=== PATIENT | female | born 1990 | race Caucasian/White ===

== ENCOUNTER 2023-01-10 10:04 | Emergency (ER) | payer OTHER ==
[2023-01-10 10:23] LABS: BASOPHILS % (AUTO) 0.6 %; EOSINOPHILS # (AUTO) 0.2 10^3/uL (0.0-0.7); EOSINOPHILS % (AUTO) 2.3 %; HCT - HEMATOCRIT 39.1 % (37.0-47.0); HGB - HEMOGLOBIN 13.6 g/dL (12.0-16.0); LYMPHOCYTES # (AUTO) 2.3 10^3/uL (1.5-3.5); LYMPHOCYTES % (AUTO) 33.1 %; MEAN CORPUSCULAR HEMOGLOBIN 30.8 pg (27.0-31.0); MEAN CORPUSCULAR HGB CONC 34.8 g/dL (32.0-36.0); MEAN CORPUSCULAR VOLUME 88.5 fL (81.0-99.0); MEAN PLATELET VOLUME 9.1 fL (7.9-10.8); MONOCYTES # (AUTO) 0.4 10^3/uL (0.0-1.0); MONOCYTES % (AUTO) 5.5 %; NEUTROPHILS # (AUTO) 4.1 10^3/uL (1.5-6.6); NEUTROPHILS % (AUTO) 58.4 %; PLT - PLATELET COUNT 263 10^3/uL (130-450); RED BLOOD COUNT 4.42 10^6/uL (4.20-5.40); RED CELL DISTRIBUTION WIDTH 11.5 % (12.0-15.0); WHITE BLOOD COUNT 7.1 x10^3/uL (4.8-10.8)
[2023-01-10 10:35] LABS: BILIRUBIN,TOTAL 0.6 mg/dL (0.2-1.0); CALCIUM 9.4 mg/dL (8.5-10.3); CREATININE 0.7 mg/dL (0.4-1.0); POTASSIUM 3.6 mmol/L (3.5-5.0)
[2023-01-10 10:36] LABS: ALBUMIN 4.1 g/dL (3.2-5.5); TOTAL PROTEIN 8.1 g/dL (6.7-8.2)
[2023-01-10] MEDS ORDERED: iohexoL-300 100 ML VIAL ONE (10:47)
--- NOTE | 2023-01-10 11:02 | ED Physician Documentation ---
PD HPI ABD PAIN - Stated complaint Stated Complaint: ABD PX - Chief complaint Chief Complaint: Abd Pain - History obtained from History obtained from: Patient - Additional information Additional information: The patient sent to the emergency department from Dr. Ferguson's office for chief complaint of abdominal pain in the right upper quadrant that has been going on for the last several days. The patient apparently was seen at [facility] for right upper quadrant pain 2 weeks ago and after extensive work-up including labs, urinalysis, ultrasound of the right upper quadrant, and CT abdomen pelvis, it was determined The patient had tip appendicitis. The on-call surgeon Dr. Umanzor was consulted and felt that the patient mainly needed antibiotics. She was discharged on Cipro and Flagyl, and states she took the whole course of both. However, she has continued to have symptoms and actually, the symptoms seem worse. The patient then ended up being somehow referred to Dr. Ferguson's office for evaluation after the symptoms failed to resolve with antibiotics. She was seen there this morning, but is Dr. Ferguson felt that she would need repeat imaging and labs, she was sent over here. The pain is focused in the patient's right upper quadrant. She did have some nausea and vomiting initially but states she has not had any vomiting since. No fevers or chills. She feels as though the right side is significantly more swollen than the left. The patient has no chronic underlying abdominal conditions. PD PAST MEDICAL HISTORY - Past Medical History Endocrine/Autoimmune: Other GI: Other Psych: Depression Other Past Medical History: appendicitis, thyroid nodule - Past Surgical History Past Surgical History: No - Present Medications Home Medications: Ambulatory Orders Medication Instructions Recorded Confirmed Cetirizine [ZyrTEC] 10 mg PO DAILY 01/10/23 01/10/23 Cyanocobalamin (Vitamin B-12) 1,000 mcg PO DAILY 01/10/23 01/10/23 [Vitamin B-12] Ferrous Sulfate [Feosol] 325 mg PO DAILY 01/10/23 01/10/23 Fluticasone [Flonase] 1 sprays ALEJANDRO DAILY 01/10/23 01/10/23 QUEtiapine [SEROquel] 100 mg PO QPM 01/10/23 01/10/23 Venlafaxine ER [Effexor ER] 150 mg PO DAILY 01/10/23 01/10/23 metFORMIN [Glucophage] 750 mg PO DAILY 01/10/23 01/10/23 traZODone [Desyrel] 50 mg PO HS 01/10/23 01/10/23 - Allergies Allergies/Adverse Reactions: Allergies Allergy/AdvReac Type Severity Reaction Status Date / Time Sulfa (Sulfonamide Allergy Hives Verified 01/10/23 10:15 Antibiotics) - Social History Does the pt smoke?: No Smoking Status: Never smoker Does the pt drink ETOH?: Yes Does the pt have substance abuse?: No - POLST Patient has POLST: No PD ED PE NORMAL - Vitals Vital signs reviewed: Yes - General General: Alert and oriented X 3, No acute distress, Well developed/nourished - HEENT HEENT: Atraumatic, PERRL, EOMI, Moist mucous membranes - Neck Neck: Supple, no meningeal sign - Cardiac Cardiac: RRR, No murmur, Strong equal pulses - Respiratory Respiratory: No respiratory distress, Clear bilaterally - Abdomen Abdomen: Soft, Non distended (No distention on the right side compared to the left that is appreciable on exam.), Other (Moderate right upper quadrant tenderness extending toward epigastrium, no rebound or guarding. Mild tenderness of the superior portion of the right Lower quadrant.) - Derm Derm: Normal color, Warm and dry, No rash - Extremities Extremities: No deformity - Neuro Neuro: Alert and oriented X 3 - Psych Psych: Normal mood, Normal affect Results - Vitals Vitals: Vital Signs - 24 hr 01/10/23 10:11 Temperature 36.6 C Heart Rate 79 Respiratory 20 Rate Blood Pressure 143/107 H O2 Saturation 100 Oxygen O2 Source Room air - Labs Labs: Laboratory Tests 01/10/23 01/10/23 10:18 10:18 WBC 7.1 RBC 4.42 Hgb 13.6 Hct 39.1 MCV 88.5 MCH 30.8 MCHC 34.8 RDW 11.5 L Plt Count 263 MPV 9.1 Neut # (Auto) 4.1 Lymph # (Auto) 2.3 Coffey # (Auto) 0.4 Eos # (Auto) 0.2 Baso # (Auto) 0.0 Absolute Nucleated RBC 0.00 Nucleated RBC % 0.0 Sodium 134 L Potassium 3.6 Chloride 100 L Carbon Dioxide 25 Anion Gap 9.0 BUN 8 Creatinine 0.7 Estimated GFR (MDRD) 98 Glucose 175 H Calcium 9.4 Total Bilirubin 0.6 AST 31 ALT 56 Alkaline Phosphatase 73 Total Protein 8.1 Albumin 4.1 Globulin 4.0 Albumin/Globulin Ratio 1.0 Lipase 29 - Rads (name of study) CT abd/pelvis Relevant Findings:: Final report received, See rad report (Negative other than bilateral ovarian cysts) PD Medical Decision Making - ED course Complexity details: reviewed old records, reviewed results, re-evaluated patient, considered differential, d/w patient ED course: I spoke with Dr. Avendaño prior to the patient presenting to the emergency department and she had requested that the work-up be repeated to determine whether the patient has appendicitis or not. The patient was worked up with CBC and ER abdominal panel, as well as a CT scan of the abdomen and pelvis here in. I did also review her records from [facility] and found that she had had a normal white count at that time. The patient's laboratory studies were unremarkable on my review, and her CT scan of the abdomen pelvis was read By the radiologist as showing no appendicitis or other acute process. The patient was found to have complex adnexal cysts bilaterally with partial collapse of the right side, but this is unlikely to be causing the patient's symptoms, given the distance between the patient's pain and the ovaries. Unfortunately, I did not have an answer as to the cause of the patient's pain, though no emergent condition has been identified. The patient was extremely disgruntled over this and visibly angry. Her stated "so we're going to go away with no answers?" I did discuss with both of them that there are a number of things we have been able to rule out and that any question of appendicitis has been put to rest, which is good news. I discussed with them that there is more evaluation that can be done outside of the ED, and that I discussed the case with Dr. Ferguson after receiving the results back. Dr. Ferguson is willing to see the patient again urgently, but needs a new referral because [facility] [place] will not cover the visit under the referral heading "appendicitis" since we have found there to be no appendicitis at this time. I have attempted to get a hold of Nanda Nur, the patient's nurse practitioner, but unfortunately, the office is closed for 2 hours for lunch and I have not been able to do so in a timely manner. I have advised the patient that I will try to get a hold of Nanda after the lunch period is over so I can discuss the case with her and let her know of the progress of the patient's situation. Dr. Ferguson has requested that if possible, the HIDA scan be done before the patient's visit with her so that she can better advise the patient. I have discussed all of these things with the patient and her . The patient has adamantly declined any medication to help with her discomfort, either here or at home. I have advised the patient to call Ms. Nur office as soon as possible to get follow-up appointment set up. Departure - Departure Disposition: Home, Self Care Clinical Impression: Abdominal pain Qualifiers: Abdominal location: right upper quadrant Qualified Code(s): R10.11 - Right upper quadrant pain Condition: Stable Instructions: ED Abdominal Pain Female Non-Specific Abdominal Pain Comments: Your labs look great today, including white blood cell count, red blood cell levels, liver labs, and pancreatic enzymes. Your ultrasound showed no gallstones or blockage of your biliary system when you are [facility] and your CT scan today shows normal gallbladder, liver, and appendix, which would be of specific concern on your right side. You do have small ovarian cysts on each side but these are in your pelvis, quite a ways away from your focus of pain. As we discussed, there are other possible Causes of your symptoms which would need to be diagnosed by other modalities which are not available at our hospital, nor are indicated emergently. These would include a HIDA scan and endoscopy. I have discussed all of this with Dr. Ferguson, who is more than willing to see you again on an urgent basis but needs your primary provider to send another referral so that will cover your visit. She should keep this more general, with this descriptor of "right upper quadrant abdominal pain". She can also get the ball rolling on ordering a HIDA scan to further evaluate your pain. You have been offered medication in the emergency department, but have declined at this time. Please speak with your primary doctor about further management of symptoms at home.
[2023-01-10] MEDS ORDERED: iohexoL-300 100 ML VIAL IVP ONE (11:13)
--- NOTE | 2023-01-10 11:25 | CT Report ---
PROCEDURE: ABDOMEN/PELVIS W INDICATIONS: RLQ pain x 3 days, worsening CONTRAST: 100 ml Omnipaque 300 TECHNIQUE: After the administration of intravenous contrast, 5 mm thick sections acquired from the diaphragms to the symphysis. 5 mm thick coronal and sagittal reformats were acquired. For radiation dose reducti on, the following was used: automated exposure control, adjustment of mA and/or kV according to latonya ent size. COMPARISON: None FINDINGS: Image quality: Excellent. Lung bases and heart: Unremarkable. Liver: Moderate diffuse hepatic steatosis. Gallbladder and biliary tree: No radiopaque stones or wall thickening. No biliary dilation. Spleen: No splenomegaly. Pancreas: No pancreatic ductal dilation. Adrenals: No adrenal nodule. Kidneys and ureters: No hydronephrosis. No renal cystic lesion which requires follow up. No solid mas s. Bowel and peritoneum: No bowel distension. No pathologic free fluid. Thin-walled gas containing appen kaley. Lymph nodes: No central or retroperitoneal adenopathy. Vessels: No infrarenal aortic aneurysm. PELVIS Reproductive organs: Bilateral cystic adnexae with a partially collapsed right adnexal cyst. Bladder: No abnormal wall thickening, accounting for underdistension. Pelvic lymph nodes: No pelvic adenopathy by size criteria. Bones: No aggressive osseous abnormality. Other: No significant ventral or inguinal hernia. IMPRESSION: 1. Normal appendix. 2. No evidence acute abdominal process. 3. Bilateral cystic adnexae with a partially collapsed right adnexal cyst. Comment: Consider pelvic ultrasound if suspect ovarian pathology. Reviewed by: Michoacano Mccray MD on 01/10/2023 11:24 AM PDT Approved by: Michoacano Mccray MD on 01/10/2023 11:24 AM PDT Station ID: [id number]
[2023-01-10 12:23] VITALS: BP 156/117
== END 2023-01-10 12:22 | disposition home or self-care (01) ==
LOC: ED 10:04
DX: R10.11 Right upper quadrant pain (principal)
CPT/HCPCS: 36415; 74177; 80053; 83690; 85025; 99283; 99284; Q9967

== ENCOUNTER 2023-01-20 19:24 | Emergency (ER) | payer OTHER ==
[2023-01-20] MEDS ORDERED: SODIUM CHLORIDE 0.9% 1,000 ML IV STA (19:42)
[2023-01-20 19:45] VITALS: BP 130/90
[2023-01-20 19:50] LABS: BASOPHILS % (AUTO) 0.3 %; EOSINOPHILS # (AUTO) 0.1 10^3/uL (0.0-0.7); EOSINOPHILS % (AUTO) 2.1 %; HCT - HEMATOCRIT 38.5 % (37.0-47.0); HGB - HEMOGLOBIN 13.3 g/dL (12.0-16.0); LYMPHOCYTES # (AUTO) 2.4 10^3/uL (1.5-3.5); MEAN CORPUSCULAR HEMOGLOBIN 30.4 pg (27.0-31.0); MEAN CORPUSCULAR HGB CONC 34.5 g/dL (32.0-36.0); MEAN CORPUSCULAR VOLUME 88.1 fL (81.0-99.0); MEAN PLATELET VOLUME 9.3 fL (7.9-10.8); MONOCYTES # (AUTO) 0.4 10^3/uL (0.0-1.0); MONOCYTES % (AUTO) 7.3 %; NEUTROPHILS # (AUTO) 2.8 10^3/uL (1.5-6.6); NEUTROPHILS % (AUTO) 49.1 %; PLT - PLATELET COUNT 271 10^3/uL (130-450); RED BLOOD COUNT 4.37 10^6/uL (4.20-5.40); RED CELL DISTRIBUTION WIDTH 11.6 % (12.0-15.0); WHITE BLOOD COUNT 5.8 x10^3/uL (4.8-10.8)
--- NOTE | 2023-01-20 19:58 | ED Physician Documentation ---
History of Present Illness - Stated complaint Stated Complaint: RECTAL BLEED - Chief complaint Chief Complaint: Abd Pain - Additonal information Additional information: Patient is 32-year-old female presenting to the emergency department with chief complaint of bright red blood per rectum. She is G1, P0, reports being 8 weeks For dates. At this afternoon had an episode of bright red blood per rectum with "dark" stool. Denies similar episodes in the past. Denies vaginal bleeding.Denies any abdominal pain, fever, nausea, vomiting associated with this event. Denies any known history hemorrhoids. Was recently treated with antibiotics for tip appendicitis diagnosed at [facility] 2 weeks ago. Review of Systems Constitutional: denies: Fever Eyes: denies: Loss of vision Ears: denies: Loss of hearing Nose: denies: Rhinorrhea / runny nose Throat: denies: Dental pain / toothache Cardiac: denies: Chest pain / pressure Respiratory: denies: Dyspnea GI: reports: Bloody / black stool. denies: Abdominal Pain, Abdominal Swelling, Nausea, Vomiting, Constipation : denies: Dysuria, Vaginal bleeding Skin: denies: Rash PD PAST MEDICAL HISTORY - Past Medical History Endocrine/Autoimmune: Other GI: Other Psych: Depression - Past Surgical History Past Surgical History: No - Present Medications Home Medications: Ambulatory Orders Medication Instructions Recorded Confirmed Cetirizine [ZyrTEC] 10 mg PO DAILY 01/10/23 01/10/23 Cyanocobalamin (Vitamin B-12) 1,000 mcg PO DAILY 01/10/23 01/10/23 [Vitamin B-12] Ferrous Sulfate [Feosol] 325 mg PO DAILY 01/10/23 01/10/23 Fluticasone [Flonase] 1 sprays ALEJANDRO DAILY 01/10/23 01/10/23 QUEtiapine [SEROquel] 100 mg PO QPM 01/10/23 01/10/23 Venlafaxine ER [Effexor ER] 150 mg PO DAILY 01/10/23 01/10/23 metFORMIN [Glucophage] 750 mg PO DAILY 01/10/23 01/10/23 traZODone [Desyrel] 50 mg PO HS 01/10/23 01/10/23 - Allergies Allergies/Adverse Reactions: Allergies Allergy/AdvReac Type Severity Reaction Status Date / Time Sulfa (Sulfonamide Allergy Hives Verified 01/20/23 19:33 Antibiotics) - Social History Does the pt smoke?: No Smoking Status: Never smoker Does the pt drink ETOH?: Yes Does the pt have substance abuse?: No - POLST Patient has POLST: No PD ED PE NORMAL - Vitals Vital signs reviewed: Yes - General General: Alert and oriented X 3, No acute distress - HEENT HEENT: Atraumatic, PERRL - Neck Neck: Supple, no meningeal sign - Respiratory Respiratory: No respiratory distress - Abdomen Abdomen: Normal bowel sounds, Soft, Non distended, No organomegaly - Rectal Rectal: Other (No external hemorrhoids, possible internal hemorrhoid, no fissures, no notable red blood or melanotic stool in rectal vault.) Results - Vitals Vitals: Vital Signs - 24 hr 01/20/23 01/20/23 19:33 19:59 Temperature 36.5 C Heart Rate 90 Respiratory 16 Rate Blood Pressure 130/90 H O2 Saturation 99 98 Oxygen O2 Source Room air - EKG (time done) 2020 EKG releavant findings:: EKG personally interpreted by author of this note. Relevant findings are: Sinus rhythm with rate [address]pm[address] Normal axis. Normal CT, QRS, QTc intervals. No ST segment elevations or T wave inversions. - Labs Labs: Microbiology 01/20/23 18:11 Occult Blood - Final Stool Laboratory Tests 01/20/23 01/20/23 01/20/23 19:45 19:45 19:45 WBC 5.8 RBC 4.37 Hgb 13.3 Hct 38.5 MCV 88.1 MCH 30.4 MCHC 34.5 RDW 11.6 L Plt Count 271 MPV 9.3 Neut # (Auto) 2.8 Lymph # (Auto) 2.4 Story # (Auto) 0.4 Eos # (Auto) 0.1 Baso # (Auto) 0.0 Absolute Nucleated RBC 0.00 Nucleated RBC % 0.0 Sodium 136 Potassium 3.7 Chloride 105 Carbon Dioxide 25 Anion Gap 6.0 BUN 6 Creatinine 0.8 Estimated GFR (MDRD) 84 L Glucose 201 H Lactic Acid Calcium 9.2 HCG, Quant 1145.19 01/20/23 19:49 WBC RBC Hgb Hct MCV MCH MCHC RDW Plt Count MPV Neut # (Auto) Lymph # (Auto) Story # (Auto) Eos # (Auto) Baso # (Auto) Absolute Nucleated RBC Nucleated RBC % Sodium Potassium Chloride Carbon Dioxide Anion Gap BUN Creatinine Estimated GFR (MDRD) Glucose Lactic Acid 1.1 Calcium HCG, Quant PD Medical Decision Making - ED course Complexity details: reviewed old records, reviewed results, d/w patient ED course: Patient is 32-year-old female presenting to the emergency department with complaint of bright red blood per rectum. Presented reporting 1 episode of bright red blood per rectum with "dark" stools today. Does report a history of IBS. Also reported history of being 8 weeks by date with no confirmatory ultrasonography performed so far this . Reports that she is following up with [facility] in the coming days. She was recently seen at [facility] and subsequently evaluated at our hospital for tip appendicitis treated with antibiotics including Flagyl and ciprofloxacin. She had a CT scan of her abdomen and pelvis performed 01/10/2023 that was benign. On arrival to the emergency department she is afebrile, hemodynamically stable. She denies any abdominal pain and is certain that her bleeding is rectal and not vaginal. She denied any fever, chills, shortness of breath or other concerning symptoms. Abdominal exam in the emergency department was benign without any focal tenderness and normal bowel sounds. Rectal exam demonstrated a possible internal hemorrhoid on deep palpation but no red blood or melena in the rectal vault. Patient's lab work is all within normal limits at this time. She does have a quantitative beta-hCG of slightly over 1100 consistent with early trimester . There is nothing in her clinical presentation however to suggest acute colitis/C. difficile colitis or [employer] complication. At this time I will discharge for follow-up with primary care with plan for watchful waiting for recurrent or worsening symptoms and return precautions given prior to discharge. Departure - Departure Disposition: 01 Home, Self Care Clinical Impression: BRBPR (bright red blood per rectum) Instructions: ED Hematochezia Stable Comments: Thank you for allowing us to care for you today at [facility]. Today in the emergency department your evaluated for any possible life- threatening medical emergency. All of the testing performed in the emergency department today including your blood work was very reassuring. There is no sign of anemia or serious blood loss at this time and your quantitative beta-hCG hormone came back at slightly above 1100 consistent with early trimester . As we discussed there are many reasons why people can have an episode of bright red blood per rectum. On your exam you did have what felt like a possible small internal hemorrhoidHowever there was no active bleeding appreciated here in the emergency department. In situations like this it is safe to be discharged home however there are some things that you should be aware of that should prompt immediate return to the emergency department. It is possible that you may continue to pass small amounts of blood per rectum but this should get progressively better over the course of time. If your bleeding becomes more profuse or worsens its important that you return. Similarly other very concerning symptoms that should prompt return to the emergency department include the development of any fever, abdominal pain, vaginal bleeding or pelvic pain. In the meantime please drink plenty of fluids and get plenty of rest. Please follow-up with your primary care doctor soon as possible. Please continue to follow-up with your [facility] [employer]. Again if it anytime you have new or worsening symptoms please do not hesitate to return. Discharge Date/Time: 01/20/23 20:51
[2023-01-20 19:59] LABS: CALCIUM 9.2 mg/dL (8.5-10.3); CREATININE 0.8 mg/dL (0.4-1.0); POTASSIUM 3.7 mmol/L (3.5-5.0)
== END 2023-01-20 20:51 | disposition home or self-care (01) ==
LOC: ED 19:24
DX: O20.9 Hemorrhage in early pregnancy, unspecified (principal); Z3A.08 8 weeks gestation of pregnancy
CPT/HCPCS: 36415; 80048; 82272; 82274; 83605; 84702; 85025; 93005; 99283

== ENCOUNTER 2023-02-11 12:35 | Outpatient (CLI) | payer OTHER ==
[2023-02-11 17:42] LABS: BASOPHILS % (AUTO) 0.4 %; EOSINOPHILS # (AUTO) 0.2 10^3/uL (0.0-0.7); EOSINOPHILS % (AUTO) 2.7 %; HCT - HEMATOCRIT 36.6 % (37.0-47.0); HGB - HEMOGLOBIN 12.9 g/dL (12.0-16.0); LYMPHOCYTES # (AUTO) 2.2 10^3/uL (1.5-3.5); LYMPHOCYTES % (AUTO) 33.2 %; MEAN CORPUSCULAR HGB CONC 35.2 g/dL (32.0-36.0); MEAN PLATELET VOLUME 10.1 fL (7.9-10.8); MONOCYTES # (AUTO) 0.4 10^3/uL (0.0-1.0); MONOCYTES % (AUTO) 5.7 %; NEUTROPHILS # (AUTO) 3.9 10^3/uL (1.5-6.6); NEUTROPHILS % (AUTO) 57.9 %; PLT - PLATELET COUNT 275 10^3/uL (130-450); RED BLOOD COUNT 4.16 10^6/uL (4.20-5.40); WHITE BLOOD COUNT 6.7 x10^3/uL (4.8-10.8)
[2023-02-11 17:53] LABS: BILIRUBIN,URINE NEGATIVE (NEGATIVE); GLUCOSE, URINE (UA) NEGATIVE (NEGATIVE); KETONES,URINE (UA) NEGATIVE (NEGATIVE); LEUKOCYTE ESTERASE, URINE NEGATIVE (NEGATIVE); NITRITE,URINE NEGATIVE (NEGATIVE); OCCULT BLOOD,URINE NEGATIVE (NEGATIVE); PROTEIN,URINE NEGATIVE (NEGATIVE); UROBILINOGEN,URINE 0.2 (NORMAL) E.U./dL (NORMAL)
[2023-02-11 18:03] LABS: AMORPHOUS SEDIMENT,UR Few /LPF; BACTERIA,URINE None Seen /HPF (None Seen); CLARITY,URINE HAZY (CLEAR); RBC,URINE None Seen /HPF (0-5); SQUAMOUS EPITHELIAL CELL,UR RARE Squamous (<= Few); WBC,URINE 0-3 /HPF (0-5)
[2023-02-12 05:13] LABS: HBsAG SCREEN Negative (Negative); HCV AB Non Reactive (Non Reactive); HIV SCREEN 4TH GENERATION Non Reactive (Non Reactive)
[2023-02-12 08:10] LABS: RPR Non Reactive (Non Reactive)
[2023-02-12 11:10] LABS: VARICELLA-ZOSTER AB IGG 250 index (Immune >165)
== END 2023-02-11 12:36 | disposition home or self-care (01) ==
LOC: LAB.N 12:35
PROVIDERS: ATTEND Obstetrics & Gynecology
DX: Z34.90 Encounter for supervision of normal pregnancy, unspecified, unspecified trimester (principal)
CPT/HCPCS: 36415; 81001; 85025; 86592; 86762; 86787; 86803; 86850; 86900; 86901; 87086; 87340; 87389

== ENCOUNTER 2023-02-18 18:51 | Outpatient (CLI) | payer OTHER ==
--- NOTE | 2023-02-19 10:04 | Ultrasound Report ---
PROCEDURE: OB First Trimester w/TV INDICATIONS: POSITIVE TEST OUTSIDE/PRIOR DATING DATA: Last menstrual period (LMP): 12/11/2022. LMP-based estimated date of delivery (WILFRIDO): 09/17/2023. First dating scan (date and location): 02/18/2023. Estimated date of delivery (WILFRIDO) from first dating scan: 09/25/2023. TECHNIQUE: Real-time scanning was performed of the fetus and maternal pelvic organs, with image documentation. Endovaginal scanning was also performed to better visualize the fetus and maternal ovaries. COMPARISON: None. FINDINGS: Intrauterine gestational sac present. Embryo: Mean gestational sac diameter 3.9 cm: 19 weeks 2 days. [place]-rump length 2.1 cm: 8 weeks 5 d ays. Heart rate: 182 bpm. Other: A subchorionic bleed measures approximately 1.3 cm. Measurement variability in dating: +/- 4 weeks by LMP, +/- 7 days by mean sac diameter (use before 6 weeks gestation if crown-rump length not able to be measured), +/- 5 days by crown-rump length (6-12 weeks gestation). Maternal organs: Ovaries demonstrate a left corpus luteal cyst IMPRESSION: 1. Single live intrauterine with estimated gestational age of 8 weeks 5 days by crown-rump length. 2. 1.3 cm subchorionic bleed. Reviewed by: Timbo Honeycutt on 02/19/2023 9:02 AM BUCK Approved by: Timbo Honeycutt on 02/19/2023 9:02 AM BUCK Station ID: [id number]
== END 2023-02-18 18:52 | disposition home or self-care (01) ==
LOC: DI 18:51
PROVIDERS: ATTEND Obstetrics & Gynecology
DX: O20.8 Other hemorrhage in early pregnancy (principal); Z3A.08 8 weeks gestation of pregnancy

== ENCOUNTER 2023-03-15 14:26 | Outpatient (CLI) | payer OTHER ==
[2023-03-15 17:54] LABS: CREATININE,URINE 202.5 mg/dL; PROTEIN/CREATININE RATIO,URINE 0.1 (<=0.2)
[2023-03-15 17:57] LABS: ALBUMIN/GLOBULIN RATIO 1.2 (1.0-2.2); BILIRUBIN,TOTAL 0.5 mg/dL (0.2-1.0); CALCIUM 9.5 mg/dL (8.5-10.3); CREATININE 0.6 mg/dL (0.6-1.3); POTASSIUM 3.5 mmol/L (3.5-4.5); TOTAL PROTEIN 7.3 g/dL (6.4-8.9); URIC ACID 4.2 mg/dL (2.3-6.6)
== END 2023-03-15 14:27 | disposition home or self-care (01) ==
LOC: LAB.N 14:26
PROVIDERS: ATTEND Nurse Practitioner
DX: R03.0 Elevated blood-pressure reading, without diagnosis of hypertension (principal)
CPT/HCPCS: 36415; 80053; 82570; 84156; 84550

== ENCOUNTER 2023-04-05 14:23 | Outpatient (CLI) | payer OTHER | END 2023-04-05 14:24 | disposition home or self-care (01) | LOC: LAB 14:23 | PROVIDERS: ATTEND Obstetrics & Gynecology | DX: Z83.2 Family history of diseases of the blood and blood-forming organs and certain disorders involving the immune mechanism (principal) | CPT/HCPCS: 81599; 85660 ==

== ENCOUNTER 2023-04-19 14:04 | Outpatient (CLI) | payer OTHER ==
[2023-04-24 20:07] LABS: AFP VALUE 28.6 ng/mL (.); DIA VALUE 250.17 pg/mL (.); DSR (BY AGE) 1 IN 544 (.); HCG VALUE 68041 mIU/mL (.); INSULIN DEP DIABETES No (.); MATERNAL AGE AT EDD 31.8 yr (.); MULTIPLE GESTATION No (.); OPEN SPINA BIFIDA RISK 1 IN 10000 (.); RACE Caucasian (.); TEST RESULTS *Screen Positive* (.); TRISOMY 18 RISK Not increased (.); UE3 VALUE 1.18 ng/mL (.); WEIGHT 210 lbs (.)
[2023-04-26 10:09] LABS: AFP MOM 0.86 (.); DIA MOM 2.01 (.); DSR (SECOND TRIMESTER) 1 IN 235 (.); GEST. AGE ON COLLECTION DATE 17.3 WEEKS (.); GESTAT. AGE METHOD EDD (.); HCG MOM 2.58 (.); UE3 MOM 1.04 (.)
== END 2023-04-19 14:05 | disposition home or self-care (01) ==
LOC: LAB.N 14:04
PROVIDERS: ATTEND Obstetrics & Gynecology
DX: O09.92 Supervision of high risk pregnancy, unspecified, second trimester (principal); Z83.2 Family history of diseases of the blood and blood-forming organs and certain disorders involving the immune mechanism
CPT/HCPCS: 36415; 81511; 81599

== ENCOUNTER 2023-05-06 16:02 | Outpatient (CLI) | payer OTHER ==
--- NOTE | 2023-05-07 10:13 | Ultrasound Report ---
PROCEDURE: OB Detailed Eval INDICATIONS: SUPERVISION OF OUTSIDE/PRIOR DATING DATA: Last menstrual period (LMP): 12/11/2022. LMP-based estimated date of delivery (WILFRIDO): 09/17/2023. First dating scan (date and location): 02/18/2023. Estimated date of delivery (WILFRIDO) from first dating scan: 09/25/2023. The below data below was generated using the ultrasound WILFRIDO of 09/25/2023 TECHNIQUE: Real-time scanning was performed of the fetus, with image documentation and biometric measurements. Endovaginal scanning: Not performed COMPARISON: OB ultrasound 02/18/2023 FINDINGS: General: A single living intrauterine gestation is present. Presentation: Variable Placenta: Placental position is posterior, without previa. Amniotic fluid index: 12.2 cm, within normal limits for gestational age. heart rate: 162 beats per minute. Maternal cervical canal: 4.2 cm long; normal length is 2.5 cm or more. biometrics: Biparietal diameter: 4.4 cm, 19 weeks 2 days Head circumference: 17.4 cm, 19 weeks 6 days Abdominal circumference: 14.7 cm, 20 weeks 0 days Femur length: 3.0 cm, 19 weeks 1 day Estimated gestational age from initial scan: 19 weeks 5 days Composite gestational age from present scan: 19 weeks 4 days Estimated weight and percentile: 302 g, 38th percentile Measurement variability in biometric dating: +/- 10 days from 12-20 weeks gestation, +/- 2 weeks from 20-30 weeks gestation, +/- 3 weeks at 30 weeks gestation or later. Anatomic survey: Neuro: Ventricles are normal at less than 10 mm. Cisterna magna is normal at 3-11 mm. Cerebellum i s normal in size and morphology. Nuchal skin fold: Normal at less than 6 mm between 14 and 20 weeks gestational age. Face: Nose and lips, facial profile are normal. Spine: No evidence for spina bifida. Heart: 4-chambered heart is present, with normal ventricular outflow tracts. Diaphragm: Diaphragm is intact. Stomach: Left-sided stomach is present. Kidneys: No hydronephrosis. Normal is less than 5 mm in 2nd trimester, less than 7 mm in 3rd trimester. Cord: 3 vessel cord has orthotopic insertion. Bladder: Normal in size. Extremities: All 4 extremities are visualized. IMPRESSION: 1.Single live intrauterine with appropriate interval growth. 2. anatomic survey is within normal limits. Reviewed by: Jarrett Boyle MD on 05/07/2023 10:12 AM PDT Approved by: Jarrett Boyle MD on 05/07/2023 10:12 AM PDT Station ID: [id number]
== END 2023-05-06 16:03 | disposition home or self-care (01) ==
LOC: DI 16:02
PROVIDERS: ATTEND Nurse Practitioner
DX: Z34.92 Encounter for supervision of normal pregnancy, unspecified, second trimester (principal)

== ENCOUNTER 2023-06-12 14:44 | Outpatient (CLI) | payer OTHER ==
[2023-06-12 15:06] LABS: HCT - HEMATOCRIT 28.6 % (37.0-47.0); HGB - HEMOGLOBIN 9.9 g/dL (12.0-16.0); MEAN CORPUSCULAR HEMOGLOBIN 30.4 pg (27.0-31.0); MEAN CORPUSCULAR HGB CONC 34.6 g/dL (32.0-36.0); MEAN CORPUSCULAR VOLUME 87.7 fL (81.0-99.0); MEAN PLATELET VOLUME 9.2 fL (7.9-10.8); RED BLOOD COUNT 3.26 10^6/uL (4.20-5.40); WHITE BLOOD COUNT 7.4 x10^3/uL (4.8-10.8)
[2023-06-12 15:31] LABS: ALBUMIN 3.5 g/dL (3.2-5.5); ALBUMIN/GLOBULIN RATIO 1.2 (1.0-2.2); BILIRUBIN,TOTAL 0.3 mg/dL (0.2-1.0); CALCIUM 8.9 mg/dL (8.5-10.3); CREATININE 0.6 mg/dL (0.6-1.3); POTASSIUM 3.3 mmol/L (3.5-4.5); TOTAL PROTEIN 6.5 g/dL (6.4-8.9)
[2023-06-12 15:32] LABS: CREATININE,URINE 173.1 mg/dL; PROTEIN/CREATININE RATIO,URINE 0.2 (<=0.2)
== END 2023-06-12 14:45 | disposition home or self-care (01) ==
LOC: LAB 14:44
PROVIDERS: ATTEND Obstetrics & Gynecology
DX: O09.92 Supervision of high risk pregnancy, unspecified, second trimester (principal); R03.0 Elevated blood-pressure reading, without diagnosis of hypertension
CPT/HCPCS: 36415; 80053; 82570; 84156; 85027

== ENCOUNTER 2023-07-09 11:37 | Outpatient (CLI) | payer OTHER ==
[2023-07-09 12:49] LABS: HCT - HEMATOCRIT 29.7 % (37.0-47.0); MEAN CORPUSCULAR HEMOGLOBIN 30.6 pg (27.0-31.0); MEAN CORPUSCULAR HGB CONC 33.7 g/dL (32.0-36.0); MEAN CORPUSCULAR VOLUME 90.8 fL (81.0-99.0); MEAN PLATELET VOLUME 9.3 fL (7.9-10.8); RED BLOOD COUNT 3.27 10^6/uL (4.20-5.40); RED CELL DISTRIBUTION WIDTH 13.9 % (12.0-15.0)
[2023-07-09 12:57] LABS: ESTIMATED AVERAGE GLUCOSE 123 mg/dL (70-100); HEMOGLOBIN A1c% 5.9 % (4.27-6.07)
[2023-07-09 13:19] LABS: THYROID STIMULATING HORMONE 3.45 uIU/mL (0.34-5.60)
== END 2023-07-09 11:38 | disposition home or self-care (01) ==
LOC: LAB 11:37
PROVIDERS: ATTEND Nurse Practitioner
DX: O09.92 Supervision of high risk pregnancy, unspecified, second trimester (principal); O99.891 Other specified diseases and conditions complicating pregnancy; R81 Glycosuria; R94.6 Abnormal results of thyroid function studies
CPT/HCPCS: 36415; 82950; 83036; 84439; 84443; 85027; 86850

== ENCOUNTER 2023-07-19 11:23 | Outpatient (CLI) | payer OTHER ==
[2023-07-19 11:34] VITALS: O2SAT 100
[2023-07-19] MEDS ORDERED: ONDANSETRON ODT 4 MG TABLET TL PRN (12:09)
[2023-07-19 12:21] VITALS: BP 112/68
[2023-07-19 12:58] LABS: BASOPHILS % (AUTO) 0.1 %; EOSINOPHILS # (AUTO) 0.1 10^3/uL (0.0-0.7); EOSINOPHILS % (AUTO) 1.3 %; HCT - HEMATOCRIT 29.6 % (37.0-47.0); HGB - HEMOGLOBIN 9.9 g/dL (12.0-16.0); LYMPHOCYTES # (AUTO) 1.5 10^3/uL (1.5-3.5); MEAN CORPUSCULAR HEMOGLOBIN 30.6 pg (27.0-31.0); MEAN CORPUSCULAR HGB CONC 33.4 g/dL (32.0-36.0); MEAN CORPUSCULAR VOLUME 91.4 fL (81.0-99.0); MEAN PLATELET VOLUME 9.3 fL (7.9-10.8); MONOCYTES # (AUTO) 0.4 10^3/uL (0.0-1.0); MONOCYTES % (AUTO) 6.3 %; NEUTROPHILS % (AUTO) 70.9 %; PLT - PLATELET COUNT 236 10^3/uL (130-450); RED BLOOD COUNT 3.24 10^6/uL (4.20-5.40)
[2023-07-19 13:23] LABS: ALBUMIN 3.1 g/dL (3.2-5.5); ALBUMIN/GLOBULIN RATIO 1.1 (1.0-2.2); BILIRUBIN,TOTAL 0.4 mg/dL (0.2-1.0); CALCIUM 9.1 mg/dL (8.5-10.3); CREATININE 0.5 mg/dL (0.6-1.3); POTASSIUM 3.3 mmol/L (3.5-4.5); TOTAL PROTEIN 5.9 g/dL (6.4-8.9)
[2023-07-19 13:45] LABS: TROPONIN I HIGH SENSITIVITY 2.3 ng/L (2.3-14.8)
--- NOTE | 2023-07-19 15:25 | PROVIDER PROGRESS NOTE ---
- HPI Chief Complaint: Other (32yo G1 was here for L&D open house - and then started to get very pale / pre-syncopal. Was brought into L&D for evaluation.) Current : Current EDU 09/25/23 Gestation 30 Weeks and 2 Days 1 Para 0 Vital Signs Temperature 98.1 F 07/19/23 11:33 Heart Rate 102 H 07/19/23 11:33 Respiratory Rate 17 07/19/23 11:33 Blood Pressure 131/75 H 07/19/23 11:33 O2 Saturation 100 07/19/23 11:33 Temperature 98.1 F 07/19/23 11:34 Heart Rate 103 H 07/19/23 11:33 Respiratory Rate 17 07/19/23 11:33 Blood Pressure 112/68 07/19/23 12:12 O2 Saturation 100 07/19/23 11:33 If not protocol: Oxygen Flow, liters/minute - Procedures OB Procedure Performed: NST Diagnosis/Indication for NST: Other (maternal pre-syncope) NST Procedure: NST Procedure Start Date 07/19/23 Start Time 11:00 Stop Time 11:30 Vibroacoustic Stimulation Used No Service Date of procedure: 07/19/23 Procedure Details: reactive NST Findings: 140 mod tito + A cells no D cells reactive - Plan Plan: 32yo G1 @ 30w with pre-syncopal episodes x3-4 also new heart murmur - systolic - that was not present on initial OB visit (with me). likely pre-syncope is ? viral pro-drome compounded by anemia / dehydration / exhaustion ? though also possible cardiac etiology EKG wnl CBC / CMP / trop wnl - though ordering K-dur x1 ordering echo 2'2 new onset murmur with pre-syncope she will be in triage until echo she did get zofran and then feel better. did recently start metformin & synthroid 5 days ago, sugar today was 161 and she was just drinking something sweet. ext without edema O2 sat wnl BP wnl tachycardic - 104 NST reactive PE benign other than appearing very pale when she was feeling unwell x2, and systolic murmur. if echo is wnl, OK to D/C home with precautions.
[2023-07-19] MEDS ORDERED: POTASSIUM CHLORIDE 20 MEQ TABLET PO ONE (16:19)
== END 2023-07-19 17:44 | disposition home or self-care (01) ==
LOC: WFO 11:23 → FBP 11:24 → WFO 17:44
PROVIDERS: ATTEND Obstetrics & Gynecology
DX: O99.891 Other specified diseases and conditions complicating pregnancy (principal); R55 Syncope and collapse; R01.1 Cardiac murmur, unspecified; R00.0 Tachycardia, unspecified; Z3A.30 30 weeks gestation of pregnancy
CPT/HCPCS: 36415; 59025; 80053; 84484; 85025; 93005; 93306; 99215; A9270; Q0162

== ENCOUNTER 2023-07-31 17:29 | Emergency (ER) | payer OTHER ==
[2023-07-31] MEDS ORDERED: ONDANSETRON ODT 4 MG TABLET TL STA (18:32)
[2023-07-31] MEDS ORDERED: LIDOCAINE MPF 1%-EPI 1:200000 10 ML VIAL SUBQ STA (18:32)
[2023-07-31] MEDS ORDERED: LIDOCAINE 1%-EPI 1:100000 20 ML MDV SUBQ STA (18:39)
[2023-07-31] MEDS ORDERED: LIDOCAINE 1%-EPI 1:100000 10 ML MDV SUBQ STA (18:39)
--- NOTE | 2023-07-31 19:15 | ED Physician Documentation ---
History of Present Illness - Stated complaint Stated Complaint: CYST - Chief complaint Chief Complaint: Wound - History obtained from History obtained from: Patient - History of Present Illness Timing: How many days ago Pain level max: 3 Pain level now: 2 - Additonal information Additional information: 32-year-old female, 32 weeks with a history of recurrent pilonidal cyst. She states she started to have swelling and pain starting a few days ago, worsened today. No vaginal bleeding or discharge. No abdominal pain. No fevers. No chills. No cough. No congestion. Review of Systems Constitutional: denies: Fever, Chills GI: denies: Vomiting, Diarrhea : reports: Now EGA (32 weeks) PD PAST MEDICAL HISTORY - Past Medical History Past Medical History: Yes Endocrine/Autoimmune: Other GI: Other Psych: Depression - Past Surgical History Past Surgical History: No - Present Medications Home Medications: Ambulatory Orders Medication Instructions Recorded Confirmed Cetirizine [ZyrTEC] 10 mg PO DAILY 01/10/23 01/10/23 Cyanocobalamin (Vitamin B-12) 1,000 mcg PO DAILY 01/10/23 01/10/23 [Vitamin B-12] Ferrous Sulfate [Feosol] 325 mg PO DAILY 01/10/23 01/10/23 Fluticasone [Flonase] 1 sprays ALEJANDRO DAILY 01/10/23 01/10/23 QUEtiapine [SEROquel] 100 mg PO QPM 01/10/23 01/10/23 Venlafaxine ER [Effexor ER] 150 mg PO DAILY 01/10/23 01/10/23 metFORMIN [Glucophage] 750 mg PO DAILY 01/10/23 01/10/23 traZODone [Desyrel] 50 mg PO HS 01/10/23 01/10/23 clindamycin HCL [Cleocin HCl] 300 mg PO Q6H #28 cap 07/31/23 - Allergies Allergies/Adverse Reactions: Allergies Allergy/AdvReac Type Severity Reaction Status Date / Time Sulfa (Sulfonamide Allergy Hives Verified 07/31/23 17:34 Antibiotics) - Social History Does the pt smoke?: No Smoking Status: Never smoker Does the pt drink ETOH?: Yes Does the pt have substance abuse?: No - POLST Patient has POLST: No PD ED PE NORMAL - Vitals Vital signs reviewed: Yes - General General: Alert and oriented X 3, No acute distress - HEENT HEENT: Moist mucous membranes - Cardiac Cardiac: RRR - Respiratory Respiratory: No respiratory distress, Clear bilaterally - Abdomen Abdomen: Soft, Non tender, Non distended - Back Back: Other (small R sided pilonidal cyst. fluctuant. mild cellulitis) - Derm Derm: Warm and dry - Neuro Neuro: Alert and oriented X 3 Results - Vitals Vitals: Vital Signs - 24 hr 07/31/23 07/31/23 17:31 19:29 Temperature 36.8 C 37.6 C Heart Rate 107 H 100 Respiratory 18 16 Rate Blood Pressure 150/78 H 135/85 H O2 Saturation 99 100 Oxygen O2 Source Room air - Labs Labs: Microbiology 07/31/23 19:04 Wound Culture - Preliminary Abscess Procedures - Abscess I&D (location) pilonidal cyst Preparation: Chlorhexadine, Lidocaine 1%, With epi Incision: Incised with scalpel, Purulent drainage, Packed, Culture obtained Other: Pt tolerated well, Dressing applied, Antibiotic prescribed PD Medical Decision Making - ED course Complexity details: considered differential, d/w patient ED course: 32-year-old female with a pilonidal abscess. This was incised and drained. Tolerated well. She is allergic to sulfa, has a history of MRSA. We will place on clindamycin. Patient is well-appearing, nontoxic. Afebrile. No evidence of perirectal abscess. Patient counseled regarding signs and symptoms for which I believe and urgent re-evaluation would be necessary. Patient with good understanding of and agreement to plan and is comfortable going home at this time This document was made in part using voice recognition software. While efforts a re made to proofread this document, sound alike and grammatical errors may occur. Departure - Departure Disposition: 01 Home, Self Care Clinical Impression: Pilonidal cyst with abscess Condition: Good Instructions: ED Cyst Pilonidal Infected IandD Follow-Up: Maria Alvardao ARNP [Provider Admit Priv/Credential] - Within 3 Days Prescriptions: clindamycin HCL [Cleocin HCl] 300 mg PO Q6H #28 cap Comments: Your prescription was sent to the [facility]. Please take all antibiotics until gone. Please follow-up with your OB in 2 to 3 days for a wound check. Keep the wound clean. You can allow warm water to run over the wound to encourage drainage. Please return if you worsen. Forms: PCP List Discharge Date/Time: 07/31/23 19:29
[2023-07-31 19:39] VITALS: BP 135/85; O2SAT 100
--- NOTE | 2023-08-04 11:30 | ED Physician Documentation ---
ED Addendum - Addendum Addendum: 08/04/23 11:30 Culture reviewed, no changes necessary.
== END 2023-07-31 19:29 | disposition home or self-care (01) ==
LOC: ED 17:29
DX: O26.893 Other specified pregnancy related conditions, third trimester (principal); Z3A.32 32 weeks gestation of pregnancy; L05.01 Pilonidal cyst with abscess; Z86.14 Personal history of Methicillin resistant Staphylococcus aureus infection; Z88.2 Allergy status to sulfonamides; Z79.899 Other long term (current) drug therapy; Z79.84 Long term (current) use of oral hypoglycemic drugs
CPT/HCPCS: 10081; 87070; 87205; 99283; Q0162

== ENCOUNTER 2023-08-06 15:01 | Outpatient (CLI) | payer OTHER ==
--- NOTE | 2023-08-06 16:35 | Ultrasound Report ---
PROCEDURE: OB Biophysical Profile INDICATIONS: GESTATIONAL DIABETES OUTSIDE/PRIOR DATING DATA: Last menstrual period (LMP): 12/11/2022. LMP-based estimated date of delivery (WILFRIDO): 09/17/2023. First dating scan (date and location): 02/18/2023. Estimated date of delivery (WILFRIDO) from first dating scan: 09/25/2023. The below data below was generated using the ultrasound WILFRIDO of 09/25/2023. TECHNIQUE: Real-time scanning was performed of the fetus, with image documentation. Biophysical pro file was also obtained. COMPARISON: OB ultrasound 05/06/2023. FINDINGS: General: A single living intrauterine gestation is present. Presentation: Vertex Placenta: Placental position is posterior, without previa. Amniotic fluid index: 13.6 cm, normal for gestational age. heart rate: 144 beats per minute. Maternal cervical canal: 4.2 cm cm long; normal length is 2.5 cm or more. No funneling. Estimated gestational age from initial scan: 32 weeks 6 days Biophysical profile: Tone: 2 points. Movement: 2 points. Respiration: 2 points. Largest pocket of fluid: 2 points. 4.7 cm. Maternal ovaries are unremarkable. IMPRESSION: 1. Vaughan living intrauterine at 32 weeks 6 days based on prior dating. 2. Normal placenta and amniotic fluid. 3. Normal biophysical profile. Score 8 out of 8. Reviewed by: Gary Zabala MD on 08/06/2023 4:34 PM PST Approved by: Gary Zabala MD on 08/06/2023 4:34 PM PST Station ID: [id number]
== END 2023-08-06 15:02 | disposition home or self-care (01) ==
LOC: DI 15:01
PROVIDERS: ATTEND Nurse Practitioner
DX: O09.93 Supervision of high risk pregnancy, unspecified, third trimester (principal); O24.419 Gestational diabetes mellitus in pregnancy, unspecified control; O99.213 Obesity complicating pregnancy, third trimester; O99.013 Anemia complicating pregnancy, third trimester; D64.9 Anemia, unspecified; O99.891 Other specified diseases and conditions complicating pregnancy; R94.6 Abnormal results of thyroid function studies; Z3A.32 32 weeks gestation of pregnancy

== ENCOUNTER 2023-08-09 13:55 | Outpatient (CLI) | payer OTHER ==
[2023-08-09 14:17] VITALS: BP 128/66
--- NOTE | 2023-08-09 16:46 | PROCEDURE REPORT ---
- HPI Diagnosis/Indication for NST: Gestational Diabetes Current EDU 09/25/23 Gestation 33 Weeks and 2 Days 1 Para 0 Vital Signs Temperature 98.2 F 08/09/23 14:05 Heart Rate 100 08/09/23 14:05 Respiratory Rate 17 08/09/23 14:05 Blood Pressure 128/66 08/09/23 14:05 Temperature 98.2 F 08/09/23 14:05 Heart Rate 100 08/09/23 14:05 Respiratory Rate 17 08/09/23 14:05 Blood Pressure 128/66 08/09/23 14:05 O2 Saturation If not protocol: Oxygen Flow, liters/minute - NST Procedure NST Procedure Start Date 08/09/23 Start Time 14:01 Stop Time 14:31 Vibroacoustic Stimulation Used No Patient States Movement Yes - Results and Plan Findings/Impression: 150 mod tito + A cells no D cells reactive Plan: OK to D/C home with precautions, instructions, and to continue scheduled ANC.
== END 2023-08-09 14:40 | disposition home or self-care (01) ==
LOC: WFO 13:55 → FBP 13:55 → WFO 14:40
PROVIDERS: ATTEND Obstetrics & Gynecology
DX: O24.419 Gestational diabetes mellitus in pregnancy, unspecified control (principal); Z3A.33 33 weeks gestation of pregnancy
CPT/HCPCS: 59025

== ENCOUNTER 2023-08-13 14:00 | Outpatient (CLI) | payer OTHER ==
--- NOTE | 2023-08-13 14:38 | Labor Flowsheet ---
Labor Flowsheet Datetime Report Generated by CPN: 08/13/2023 14:37 Datetime: 08/13/2023 14:24 VITAL SIGNS NBP Sys/Mary/Mean (mmHg): 132 : 81 : 91 Pulse: 97 Datetime: 08/09/2023 14:14 SpO2 (%): 99
[2023-08-13 15:44] VITALS: BP 133/83; O2SAT 97
--- NOTE | 2023-08-13 16:02 | PROCEDURE REPORT ---
- HPI Diagnosis/Indication for NST: Gestational Diabetes Current EDU 09/25/23 Gestation 33 Weeks and 6 Days 1 Para 0 Vital Signs Temperature 98.1 F 08/13/23 14:10 Heart Rate 97 08/13/23 14:10 Respiratory Rate 16 08/13/23 14:10 Blood Pressure 133/83 H 08/13/23 14:10 O2 Saturation 97 08/13/23 14:10 Temperature 98.1 F 08/13/23 14:13 Heart Rate 97 08/13/23 14:13 Respiratory Rate 16 08/13/23 14:13 Blood Pressure 139/88 H 08/13/23 14:13 O2 Saturation 97 08/13/23 14:10 If not protocol: Oxygen Flow, liters/minute - NST Procedure NST Procedure Start Date 08/13/23 Start Time 14:11 Stop Time 14:41 Vibroacoustic Stimulation Used No Patient States Movement Yes - Results and Plan Plan: Patient is a 32-year-old G1, P0 at 33 weeks 6 days gestation here for scheduled NST. NST Performed 08/13/2023 NST Read 08/13/2023 FHT: 155 bpm baseline, moderate variability, accelerations present, no decelerations. Reactive NST Swan: Intermittent, declines pressure. Declined cervical exam Diagnosis 33 weeks gestation Gestational diabetes Continue with scheduled NST.
== END 2023-08-13 14:58 | disposition home or self-care (01) ==
LOC: WFO 14:00 → FBP 14:03 → WFO 14:58
PROVIDERS: ATTEND Obstetrics & Gynecology
DX: O24.419 Gestational diabetes mellitus in pregnancy, unspecified control (principal); O99.013 Anemia complicating pregnancy, third trimester; O28.1 Abnormal biochemical finding on antenatal screening of mother; O09.93 Supervision of high risk pregnancy, unspecified, third trimester; O99.213 Obesity complicating pregnancy, third trimester; Z3A.33 33 weeks gestation of pregnancy
CPT/HCPCS: 59025

== ENCOUNTER 2023-08-14 15:44 | Outpatient (CLI) | payer OTHER ==
--- NOTE | 2023-08-15 13:38 | Ultrasound Report ---
PROCEDURE: OB Biophysical Profile INDICATIONS: GESTATIONAL DIABETES OUTSIDE/PRIOR DATING DATA: Last menstrual period (LMP): 12/11/2022. LMP-based estimated date of delivery (WILFRIDO): 09/17/2023. First dating scan (date and location): 02/18/2023. Estimated date of delivery (WILFRIDO) from first dating scan: 09/25/2023. The below data below was generated using the sonographic WILFRIDO of 09/25/2023 TECHNIQUE: Real-time scanning was performed of the fetus, with image documentation and biometric christina surements. Biophysical profile was also obtained. Endovaginal scanning: Not performed COMPARISON: Several prior studies, most recent 08/06/2023 FINDINGS: General: A single living intrauterine gestation is present. Presentation: Vertex Placenta: Placental position is posterior, without previa. Amniotic fluid index: 11.5 cm, deepest pocket is 3.5 cm, normal for gestational age. heart rate: 153 beats per minute. Maternal cervical canal: Not seen biometrics: Biparietal diameter: 8.3 cm, 33 weeks 3 days, 29th percentile Head circumference: 32 cm, 36 weeks 0 days, 67th percentile Abdominal circumference: 33.2 cm, 37 weeks 1 day, 99th percentile Femur length: 6.3 cm, 32 weeks 5 days, 11th percentile Estimated gestational age from initial scan: 34 weeks 0 days Composite gestational age from present scan: 34 weeks 6 days Estimated weight and percentile: 2693 g, 85th percentile Measurement variability in biometric dating: +/- 10 days from 12-20 weeks gestation, +/- 2 weeks from 20-30 weeks gestation, +/- 3 weeks at 30 weeks gestation or later. Biophysical profile: Tone: 2 points. Movement: 2 points. Respiration: 2 points. Largest pocket of fluid: 2 points. Umbilical artery Doppler: Not imaged IMPRESSION: 1. Single living in vertex presentation. 2. Growth 6 days ahead of the expected gestational age. 3. Estimated weight at the 85th percentile. 4. Normal biophysical profile. 5. Normal amniotic fluid volume. Reviewed by: Courtney Arias MD on 08/15/2023 1:37 PM PST Approved by: Courtney Arias MD on 08/15/2023 1:37 PM PST Station ID: [id number]
== END 2023-08-14 15:45 | disposition home or self-care (01) ==
LOC: DI 15:44
PROVIDERS: ATTEND Nurse Practitioner
DX: O24.419 Gestational diabetes mellitus in pregnancy, unspecified control (principal); O99.013 Anemia complicating pregnancy, third trimester; Z3A.34 34 weeks gestation of pregnancy; O28.1 Abnormal biochemical finding on antenatal screening of mother; O99.213 Obesity complicating pregnancy, third trimester; O09.93 Supervision of high risk pregnancy, unspecified, third trimester

== ENCOUNTER 2023-08-16 13:53 | Outpatient (CLI) | payer OTHER ==
[2023-08-16 14:15] VITALS: BP 137/82; O2SAT 97
--- NOTE | 2023-08-16 16:25 | PROCEDURE REPORT ---
- HPI Diagnosis/Indication for NST: Gestational Diabetes Current EDU 09/25/23 Gestation 34 Weeks and 2 Days 1 Para 0 Vital Signs Temperature 98.1 F 08/16/23 14:11 Heart Rate 106 H 08/16/23 14:11 Respiratory Rate 17 08/16/23 14:11 Blood Pressure 137/82 H 08/16/23 14:11 O2 Saturation 97 08/16/23 14:11 Temperature 98.1 F 08/16/23 14:11 Heart Rate 106 H 08/16/23 14:11 Respiratory Rate 17 08/16/23 14:11 Blood Pressure 137/82 H 08/16/23 14:11 O2 Saturation 97 08/16/23 14:11 If not protocol: Oxygen Flow, liters/minute - NST Procedure NST Procedure Start Date 08/16/23 Start Time 14:01 Stop Time 14:40 Vibroacoustic Stimulation Used No nst for GDN. 36w2d baseline 155. + acels. no decels. moderate variability. - Results and Plan Findings/Impression: reactive nst Plan: care as scheduled.
== END 2023-08-16 14:45 | disposition home or self-care (01) ==
LOC: WFO 13:53 → FBP 13:54 → WFO 14:45
PROVIDERS: ATTEND Obstetrics & Gynecology
DX: O24.419 Gestational diabetes mellitus in pregnancy, unspecified control (principal); Z3A.34 34 weeks gestation of pregnancy; O99.013 Anemia complicating pregnancy, third trimester; O28.1 Abnormal biochemical finding on antenatal screening of mother; O09.93 Supervision of high risk pregnancy, unspecified, third trimester; O99.213 Obesity complicating pregnancy, third trimester
CPT/HCPCS: 59025

== ENCOUNTER 2023-08-20 15:55 | Outpatient (CLI) | payer OTHER ==
--- NOTE | 2023-08-21 11:28 | Ultrasound Report ---
PROCEDURE: OB Biophysical Profile INDICATIONS: GESTATIONAL DIABETES OUTSIDE/PRIOR DATING DATA: Last menstrual period (LMP): 12/11/2022. LMP-based estimated date of delivery (WILFRIDO): 09/17/2023. First dating scan (date and location): 02/18/2023. Estimated date of delivery (WILFRIDO) from first dating scan: 09/25/2023. The below data below was generated using the ultrasound WILFRIDO of 09/25/2023 TECHNIQUE: Real-time scanning was performed of the fetus, with image documentation. Biophysical pro file was also obtained. Endovaginal scanning: Not performed COMPARISON: OB ultrasound 08/14/2023 FINDINGS: General: A single living intrauterine gestation is present. Presentation: Vertex Placenta: Placental position is posterior, without previa. Amniotic fluid index: 13.3 cm, normal for gestational age. heart rate: 157 beats per minute. Maternal cervical canal: Not well visualized. Estimated gestational age from initial scan: 34 weeks 6 days. Biophysical profile: Tone: 2 points. Movement: 2 points. Respiration: 2 points. Largest pocket of fluid: 2 points. IMPRESSION: 1.Single live intrauterine . 2.Biophysical profile score is 8 of 8. 3.Amniotic fluid index is normal at 13.3 cm. Reviewed by: Jarrett Boyle MD on 08/21/2023 11:27 AM PST Approved by: Jarrett Boyle MD on 08/21/2023 11:27 AM PST Station ID: [id number]
== END 2023-08-20 15:56 | disposition home or self-care (01) ==
LOC: DI 15:55
PROVIDERS: ATTEND Nurse Practitioner
DX: O24.419 Gestational diabetes mellitus in pregnancy, unspecified control (principal); O09.92 Supervision of high risk pregnancy, unspecified, second trimester; O99.213 Obesity complicating pregnancy, third trimester; O99.013 Anemia complicating pregnancy, third trimester; O28.8 Other abnormal findings on antenatal screening of mother; Z3A.34 34 weeks gestation of pregnancy

== ENCOUNTER 2023-08-20 16:40 | Outpatient (CLI) | payer OTHER ==
[2023-08-20 17:43] LABS: BASOPHILS % (AUTO) 0.3 %; EOSINOPHILS # (AUTO) 0.1 10^3/uL (0.0-0.7); HCT - HEMATOCRIT 32.6 % (37.0-47.0); HGB - HEMOGLOBIN 10.9 g/dL (12.0-16.0); LYMPHOCYTES # (AUTO) 1.8 10^3/uL (1.5-3.5); MEAN CORPUSCULAR HEMOGLOBIN 30.1 pg (27.0-31.0); MEAN CORPUSCULAR HGB CONC 33.4 g/dL (32.0-36.0); MEAN CORPUSCULAR VOLUME 90.1 fL (81.0-99.0); MEAN PLATELET VOLUME 9.3 fL (7.9-10.8); MONOCYTES # (AUTO) 0.4 10^3/uL (0.0-1.0); MONOCYTES % (AUTO) 6.4 %; NEUTROPHILS # (AUTO) 4.4 10^3/uL (1.5-6.6); PLT - PLATELET COUNT 248 10^3/uL (130-450); RED BLOOD COUNT 3.62 10^6/uL (4.20-5.40); RED CELL DISTRIBUTION WIDTH 13.6 % (12.0-15.0); WHITE BLOOD COUNT 6.7 x10^3/uL (4.8-10.8)
[2023-08-20 17:57] LABS: ALBUMIN 3.2 g/dL (3.2-5.5); BILIRUBIN,TOTAL 0.5 mg/dL (0.2-1.0); CALCIUM 9.1 mg/dL (8.5-10.3); CREATININE 0.5 mg/dL (0.6-1.3); POTASSIUM 3.5 mmol/L (3.5-4.5); TOTAL PROTEIN 6.5 g/dL (6.4-8.9)
[2023-08-20 18:31] LABS: CREATININE,URINE 74.7 mg/dL; PROTEIN/CREATININE RATIO,URINE 0.2 (<=0.2)
--- NOTE | 2023-08-20 18:58 | PROVIDER PROGRESS NOTE ---
- HPI Chief Complaint: Hypertension/PIH Current : Vital Signs Temperature 98.6 F 08/20/23 16:55 Heart Rate 97 08/20/23 16:55 Respiratory Rate 16 08/20/23 16:55 Temperature 98.6 F 08/20/23 16:55 Heart Rate 97 08/20/23 16:55 Respiratory Rate 16 08/20/23 16:55 Blood Pressure O2 Saturation If not protocol: Oxygen Flow, liters/minute - Procedures OB Procedure Performed: NST Diagnosis/Indication for NST: Gestational Diabetes NST Procedure: NST Procedure Start Time 14:11 Stop Time 14:40 Service Date of procedure: 08/20/23 Procedure Details: 140 mod tito + A cells no D cells reactive and reassuring - Plan Plan: pt presented for scheduled NST for GDM and cHTN she is also having severe sciatica pain initial BP was severe and all repeat were wnl. 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
== END 2023-08-20 18:55 | disposition home or self-care (01) ==
LOC: WFO 16:40 → FBP 16:43 → WFO 18:55
PROVIDERS: ATTEND Obstetrics & Gynecology
DX: O13.3 Gestational [pregnancy-induced] hypertension without significant proteinuria, third trimester (principal); O24.419 Gestational diabetes mellitus in pregnancy, unspecified control; Z3A.34 34 weeks gestation of pregnancy; O99.891 Other specified diseases and conditions complicating pregnancy; M54.30 Sciatica, unspecified side; O09.93 Supervision of high risk pregnancy, unspecified, third trimester; O28.1 Abnormal biochemical finding on antenatal screening of mother; O99.213 Obesity complicating pregnancy, third trimester; O99.013 Anemia complicating pregnancy, third trimester
CPT/HCPCS: 36415; 59025; 80053; 82570; 84156; 84550; 85025; 99214; 99215

== ENCOUNTER 2023-08-23 13:45 | Outpatient (CLI) | payer OTHER ==
--- NOTE | 2023-08-23 14:46 | PROVIDER PROGRESS NOTE ---
- HPI Chief Complaint: Hypertension/PIH Current : Vital Signs Temperature 98.4 F 08/23/23 14:00 Heart Rate 100 08/23/23 14:00 Respiratory Rate 17 08/23/23 14:00 Blood Pressure 145/92 H 08/23/23 14:00 Temperature 98.4 F 08/23/23 14:00 Heart Rate 100 08/23/23 14:00 Respiratory Rate 17 08/23/23 14:00 Blood Pressure 145/92 H 08/23/23 14:00 O2 Saturation If not protocol: Oxygen Flow, liters/minute - Exam NAD no increased work of breathing +2 DTR R forarm / R knee no CCE - Procedures OB Procedure Performed: NST NST Procedure: NST Procedure Start Time 16:50 Stop Time 18:36 Service Date of procedure: 08/23/23 Procedure Details: 150 mod tito + A cells no D cells reactive Findings: elevated and not severe BP checking PIH labs -- and TSH as she was due for that during her antepartum course. precautions reviewed will continue to follow closely checks her BP 2-3 times at home asymptomatic currently precautions reviewed f/u labs - if wnl, and no worsening BP, OK to DC home with strict precautions.
[2023-08-23 14:55] LABS: BASOPHILS % (AUTO) 0.3 %; EOSINOPHILS # (AUTO) 0.1 10^3/uL (0.0-0.7); HCT - HEMATOCRIT 32.5 % (37.0-47.0); HGB - HEMOGLOBIN 11.1 g/dL (12.0-16.0); LYMPHOCYTES # (AUTO) 1.8 10^3/uL (1.5-3.5); LYMPHOCYTES % (AUTO) 26.1 %; MEAN CORPUSCULAR HEMOGLOBIN 30.5 pg (27.0-31.0); MEAN CORPUSCULAR HGB CONC 34.2 g/dL (32.0-36.0); MEAN CORPUSCULAR VOLUME 89.3 fL (81.0-99.0); MEAN PLATELET VOLUME 9.5 fL (7.9-10.8); MONOCYTES # (AUTO) 0.5 10^3/uL (0.0-1.0); MONOCYTES % (AUTO) 7.3 %; NEUTROPHILS # (AUTO) 4.4 10^3/uL (1.5-6.6); PLT - PLATELET COUNT 243 10^3/uL (130-450); RED BLOOD COUNT 3.64 10^6/uL (4.20-5.40); RED CELL DISTRIBUTION WIDTH 13.8 % (12.0-15.0); WHITE BLOOD COUNT 6.7 x10^3/uL (4.8-10.8)
[2023-08-23 15:08] LABS: ALBUMIN 3.1 g/dL (3.2-5.5); BILIRUBIN,TOTAL 0.4 mg/dL (0.2-1.0); CALCIUM 9.1 mg/dL (8.5-10.3); CREATININE 0.5 mg/dL (0.6-1.3); POTASSIUM 3.4 mmol/L (3.5-4.5); TOTAL PROTEIN 6.2 g/dL (6.4-8.9)
[2023-08-23 15:09] LABS: PROTEIN/CREATININE RATIO,URINE 0.3 (<=0.2)
[2023-08-23 15:48] LABS: THYROID STIMULATING HORMONE 0.39 uIU/mL (0.34-5.60)
--- NOTE | 2023-08-23 15:59 | PROVIDER PROGRESS NOTE ---
- HPI Chief Complaint: Hypertension/PIH Current : Vital Signs Temperature 98.4 F 08/23/23 14:00 Heart Rate 100 08/23/23 14:00 Respiratory Rate 17 08/23/23 14:00 Blood Pressure 145/92 H 08/23/23 14:00 Temperature 98.4 F 08/23/23 14:00 Heart Rate 100 08/23/23 14:00 Respiratory Rate 17 08/23/23 14:00 Blood Pressure 132/91 H 08/23/23 15:35 O2 Saturation If not protocol: Oxygen Flow, liters/minute - Exam labile BP, though none in severe range - Procedures NST Procedure: NST Procedure Start Time 16:50 Stop Time 18:36 - Plan Plan: reviewed [facility] labs -- not in HELLP does have increased AK:CR ratio -- 0.3 will order 24h urine protein and BMZ today for f/u tomorrow with 24h urine, and second BMZ shot precautions reviewed - strict precautions reviewed she is supported and has her close by aware that she is pending a diagnosis of mild preEclampsia. f/u tomorrow and PRN.
[2023-08-23] MEDS ORDERED: BETAMETHASONE 30 MG/5 ML VIAL IM ONE (16:23)
[2023-08-23 17:37] VITALS: BP 130/83
== END 2023-08-23 17:00 | disposition home or self-care (01) ==
LOC: WFO 13:45 → FBP 13:51 → WFO 17:00
PROVIDERS: ATTEND Obstetrics & Gynecology
DX: O13.9 Gestational [pregnancy-induced] hypertension without significant proteinuria, unspecified trimester (principal); Z3A.34 34 weeks gestation of pregnancy
CPT/HCPCS: 36415; 59025; 80053; 82570; 84156; 84443; 85025; 96372; 99215

== ENCOUNTER 2023-08-24 08:00 | Outpatient (CLI) | payer OTHER ==
[2023-08-24 18:42] LABS: TOTAL VOLUME 24HRS,URINE 3850 mL
[2023-08-24 18:49] LABS: TOTAL PROTEIN 24HR,URINE 462 mg/24hr (40-150); TOTAL PROTEIN,URINE TIMED 12 mg/dL
== END 2023-08-24 23:59 | disposition home or self-care (01) ==
LOC: LAB.R 08:00
PROVIDERS: ATTEND Obstetrics & Gynecology
DX: R03.0 Elevated blood-pressure reading, without diagnosis of hypertension (principal)
CPT/HCPCS: 84156

== ENCOUNTER 2023-08-24 18:13 | Outpatient (CLI) | payer OTHER ==
[2023-08-24] MEDS ORDERED: BETAMETHASONE 30 MG/5 ML VIAL IM SCH (19:00)
[2023-08-24 19:44] VITALS: BP 136/86
[2023-08-24] MEDS ORDERED: POTASSIUM CHLORIDE 20 MEQ TABLET PO ONE (19:57)
--- NOTE | 2023-08-24 20:35 | PROVIDER PROGRESS NOTE ---
- HPI Chief Complaint: Hypertension/PIH Current : Current EDU 09/25/23 Gestation 35 Weeks and 3 Days 1 Para 0 Vital Signs Temperature 98.2 F 08/24/23 18:31 Heart Rate 106 H 08/24/23 18:31 Respiratory Rate 18 08/24/23 18:31 Blood Pressure 125/83 H 08/24/23 18:31 Temperature 98.2 F 08/24/23 18:31 Heart Rate 106 H 08/24/23 18:31 Respiratory Rate 18 08/24/23 18:31 Blood Pressure 136/86 H 08/24/23 19:42 O2 Saturation If not protocol: Oxygen Flow, liters/minute - Procedures OB Procedure Performed: NST Diagnosis/Indication for NST: Other (mild preEclampsia) NST Procedure: NST Procedure Start Date 08/24/23 Start Time 18:48 Stop Time 19:16 Vibroacoustic Stimulation Used No Patient States Movement Yes Service Date of procedure: 08/24/23 Procedure Details: 140 mod tito + A cells no D cells reactive Findings: reactive NST 24h urine: >300, <5000 asymptomatic BP wnl - no elevated BP today. - Plan Plan: diagnosed with mild preEclampsia well connected to health care has BP cuff at home high compliance well supported by asymptomatic reviewed change in course of care reviewed warning signs reviewed risks of severe preE and eclampsia including risks of abruption & seizure strict precautions reviewed pt verbalized understanding all quesitons answered has appts every day this coming week
== END 2023-08-24 20:20 | disposition home or self-care (01) ==
LOC: WFO 18:13 → FBP 18:14 → WFO 20:20
PROVIDERS: ATTEND Obstetrics & Gynecology
DX: O14.03 Mild to moderate pre-eclampsia, third trimester (principal); Z3A.35 35 weeks gestation of pregnancy
CPT/HCPCS: 59025; 84156; 87081; 87181; 87797; 96372; 99215; A9270

== ENCOUNTER 2023-08-28 09:40 | Outpatient (CLI) | payer OTHER ==
--- NOTE | 2023-08-28 17:46 | Ultrasound Report ---
PROCEDURE: OB Biophysical Profile INDICATIONS: GESTATIONAL DIABETES OUTSIDE/PRIOR DATING DATA: Last menstrual period (LMP): 12/11/2022. LMP-based estimated date of delivery (WILFRIDO): 09/17/2023. First dating scan (date and location): 02/18/2023. Estimated date of delivery (WILFRIDO) from first dating scan: 09/25/2023 TECHNIQUE: Real-time scanning was performed of the fetus, with image documentation and biometric christina surements. Biophysical profile was also obtained. COMPARISON: OB ultrasound dated 08/20/2023, 08/14/2023 FINDINGS: General: A single living intrauterine gestation is present. Presentation: Vertex Placenta: Placental position is posterior, without previa. Amniotic fluid index: 13.6 cm, 2.4% for gestational age. heart rate: 144 beats per minute. Maternal cervical canal: 4.2 cm long; normal length is 2.5 cm or more. Biophysical profile: Tone: 2 points. Movement: 2 points. Respiration: 2 points. Largest pocket of fluid: 2 points. IMPRESSION: 1. Single live intrauterine gestation in vertex position. 2. 8/8 biophysical profile. Reviewed by: Dina Vanessa MD on 08/28/2023 5:45 PM PST Approved by: Dina Vanessa MD on 08/28/2023 5:45 PM PST Station ID: [id number]
== END 2023-08-28 09:41 | disposition home or self-care (01) ==
LOC: DI 09:40
PROVIDERS: ATTEND Nurse Practitioner
DX: O24.419 Gestational diabetes mellitus in pregnancy, unspecified control (principal); O28.1 Abnormal biochemical finding on antenatal screening of mother; O09.92 Supervision of high risk pregnancy, unspecified, second trimester; O99.213 Obesity complicating pregnancy, third trimester; O99.019 Anemia complicating pregnancy, unspecified trimester; D64.9 Anemia, unspecified; O99.891 Other specified diseases and conditions complicating pregnancy; R94.6 Abnormal results of thyroid function studies; Z3A.00 Weeks of gestation of pregnancy not specified

== ENCOUNTER 2023-08-28 10:14 | Outpatient (CLI) | payer OTHER ==
[2023-08-28 10:37] VITALS: BP 137/84
--- NOTE | 2023-08-28 14:36 | PROCEDURE REPORT ---
- HPI Diagnosis/Indication for NST: Gestational Hypertension Current EDU 09/25/23 Gestation 36 Weeks and 0 Days 1 Para 0 Vital Signs Temperature 98.4 F 08/28/23 10:27 Heart Rate 87 08/28/23 10:27 Respiratory Rate 19 08/28/23 10:27 Blood Pressure 137/84 H 08/28/23 10:27 Temperature 98.4 F 08/28/23 10:27 Heart Rate 87 08/28/23 10:27 Respiratory Rate 08/28/23 10:27 Blood Pressure 137/84 H 08/28/23 10:27 O2 Saturation If not protocol: Oxygen Flow, liters/minute - NST Procedure NST Procedure Start Date 08/28/23 Start Time 10:20 Stop Time 11:00 Vibroacoustic Stimulation Used No - Results and Plan Findings/Impression: 145 mod tito + A cells no D cells reactive Plan: OK to D/C home with precautions aware of Dx of mild preE, aware of precautions and instructions.
== END 2023-08-28 11:00 | disposition home or self-care (01) ==
LOC: WFO 10:14 → FBP 10:15 → WFO 11:00
PROVIDERS: ATTEND Obstetrics & Gynecology
DX: O09.93 Supervision of high risk pregnancy, unspecified, third trimester (principal); O14.03 Mild to moderate pre-eclampsia, third trimester; O28.1 Abnormal biochemical finding on antenatal screening of mother; O99.213 Obesity complicating pregnancy, third trimester; O99.013 Anemia complicating pregnancy, third trimester; O99.891 Other specified diseases and conditions complicating pregnancy; R94.6 Abnormal results of thyroid function studies; O24.419 Gestational diabetes mellitus in pregnancy, unspecified control; Z3A.36 36 weeks gestation of pregnancy
CPT/HCPCS: 59025

== ENCOUNTER 2023-08-30 13:54 | Outpatient (CLI) | payer OTHER ==
[2023-08-30 14:14] VITALS: BP 149/88
--- NOTE | 2023-08-30 14:34 | PROCEDURE REPORT ---
- HPI Diagnosis/Indication for NST: Gestational Hypertension Vital Signs Temperature 98.4 F 08/30/23 14:07 Heart Rate 91 08/30/23 14:07 Respiratory Rate 18 08/30/23 14:07 Blood Pressure 149/88 H 08/30/23 14:07 Temperature 98.4 F 08/30/23 14:07 Heart Rate 91 08/30/23 14:07 Respiratory Rate 18 08/30/23 14:07 Blood Pressure 149/88 H 08/30/23 14:07 O2 Saturation If not protocol: Oxygen Flow, liters/minute - Results and Plan Findings/Impression: Patient is a 32-year-old G1, P0 at 36 weeks 2 days gestation with preeclampsia and gestational diabetes She here for scheduled NST. NST Performed 08/30/2023 NST Read 08/30/2023 FHT: 155 bpm baseline, moderate variability, accelerations present, no decelerations. Reactive NST Croom: Quiescent Diagnosis 36 weeks gestation Preeclampsia without severe features Gestational diabetes Continue with scheduled NST.
== END 2023-08-30 14:45 | disposition home or self-care (01) ==
LOC: WFO 13:54 → FBP 13:57 → WFO 14:45
PROVIDERS: ATTEND Obstetrics & Gynecology
DX: O09.93 Supervision of high risk pregnancy, unspecified, third trimester (principal); O14.03 Mild to moderate pre-eclampsia, third trimester; O24.419 Gestational diabetes mellitus in pregnancy, unspecified control; O99.891 Other specified diseases and conditions complicating pregnancy; R94.6 Abnormal results of thyroid function studies; O99.013 Anemia complicating pregnancy, third trimester; O99.213 Obesity complicating pregnancy, third trimester; Z3A.36 36 weeks gestation of pregnancy; O28.1 Abnormal biochemical finding on antenatal screening of mother
CPT/HCPCS: 59025

== ENCOUNTER 2023-09-03 13:47 | Outpatient (CLI) | payer OTHER ==
[2023-09-03 14:04] VITALS: BP 151/91
[2023-09-03 15:07] LABS: HCT - HEMATOCRIT 34.9 % (37.0-47.0); HGB - HEMOGLOBIN 11.7 g/dL (12.0-16.0); MEAN CORPUSCULAR HEMOGLOBIN 30.3 pg (27.0-31.0); MEAN CORPUSCULAR HGB CONC 33.5 g/dL (32.0-36.0); MEAN CORPUSCULAR VOLUME 90.4 fL (81.0-99.0); MEAN PLATELET VOLUME 9.7 fL (7.9-10.8); RED BLOOD COUNT 3.86 10^6/uL (4.20-5.40); RED CELL DISTRIBUTION WIDTH 13.2 % (12.0-15.0); WHITE BLOOD COUNT 8.1 x10^3/uL (4.8-10.8)
[2023-09-03 15:45] LABS: BILIRUBIN,TOTAL 0.4 mg/dL (0.2-1.0); CALCIUM 8.6 mg/dL (8.5-10.3); CREATININE 0.4 mg/dL (0.6-1.3); POTASSIUM 3.2 mmol/L (3.5-4.5); TOTAL PROTEIN 6.1 g/dL (6.4-8.9)
--- NOTE | 2023-09-03 18:27 | PROVIDER PROGRESS NOTE ---
- HPI Chief Complaint: Hypertension/PIH Current : Vital Signs Temperature 98.6 F 09/03/23 13:59 Heart Rate 102 H 09/03/23 13:59 Respiratory Rate 16 09/03/23 13:59 Blood Pressure 151/91 H 09/03/23 13:59 Temperature 98.6 F 09/03/23 13:59 Heart Rate 102 H 09/03/23 13:59 Respiratory Rate 16 09/03/23 13:59 Blood Pressure 151/91 H 09/03/23 13:59 O2 Saturation If not protocol: Oxygen Flow, liters/minute - Procedures OB Procedure Performed: NST NST Procedure: NST Procedure Start Time 14:01 Stop Time 14:40 NST reviewed in real time. + acels, no decels. moderate variability. Service Date of procedure: 09/03/23 Findings: reactive NST - Plan Plan: Patient here for routine NST. has diagnosis of Preeclampsia already based on bps and urine protein last weekend. today bps are elevated again over 140/90. I recommended that she stay for induction as she is 37 weeks at midnight. she absolutely wants to wait until Saturday. She feels more comfortable with the nursing staff that is on then she told me. Her labs are normal. BPP 8/8 and RAINE normal. I discussed risks of more severe preeclampsia like seizures, abruption, stroke. I talked with her about what to watch out for including headaches, visual changes, n/v, abd pain, bleeding, decreased movement. Her was present the entire time. They had opportunity to ask questions. She will see me in the office tomorrow am at 10.
[2023-09-03 21:48] LABS: ESTIMATED AVERAGE GLUCOSE 123 mg/dL (70-100); HEMOGLOBIN A1c% 5.9 % (4.27-6.07)
== END 2023-09-03 16:36 | disposition home or self-care (01) ==
LOC: WFO 13:47 → FBP 13:49 → WFO 16:36
PROVIDERS: ATTEND Obstetrics & Gynecology
DX: O14.93 Unspecified pre-eclampsia, third trimester (principal); O24.419 Gestational diabetes mellitus in pregnancy, unspecified control; O09.93 Supervision of high risk pregnancy, unspecified, third trimester; O99.213 Obesity complicating pregnancy, third trimester; O99.013 Anemia complicating pregnancy, third trimester; Z3A.36 36 weeks gestation of pregnancy; O28.1 Abnormal biochemical finding on antenatal screening of mother; O34.83 Maternal care for other abnormalities of pelvic organs, third trimester; N83.292 Other ovarian cyst, left side; N83.291 Other ovarian cyst, right side
CPT/HCPCS: 36415; 59025; 80053; 83036; 84443; 84550; 85027; 99215

== ENCOUNTER 2023-09-03 15:02 | Outpatient (CLI) | payer OTHER ==
--- NOTE | 2023-09-03 17:41 | Ultrasound Report ---
PROCEDURE: OB Biophysical Profile INDICATIONS: GESTATIONAL DIABETES OUTSIDE/PRIOR DATING DATA: Last menstrual period (LMP): 12/11/2022. LMP-based estimated date of delivery (WILFRIDO): 09/17/2023. First dating scan (date and location): 02/18/2023. Estimated date of delivery (WILFRIDO) from first dating scan: To 724. The below data below was generated using the working WILFRIDO of to 724 TECHNIQUE: Real-time scanning was performed of the fetus, with image documentation. Biophysical prof ile was also obtained. Endovaginal scanning: Not indicated COMPARISON: 08/28/2023, 08/20/2023, 08/14/2023 FINDINGS: General: A single living intrauterine gestation is present. Presentation: Vertex Placenta: Placental position is posterior, without previa. Amniotic fluid index: 9.5 cm, within normal limits for gestational age. heart rate: 160 beats per minute. Maternal cervical canal: Not well seen. Estimated gestational age from initial scan: 36 weeks, 6 days Biophysical profile: Tone: 2 points. Movement: 2 points. Respiration: 2 points. Largest pocket of fluid: 2 points. Others: Simple appearing bilateral ovarian cysts are noted measures 3.7 x 2.9 x 3.8 on the right side and 2 x 1.8 x 1.5 cm in size on the left side. IMPRESSION: 1. Single live intrauterine gestation with fetus in vertex presentation. heart rate is 160 bpm. RAINE was not 0.5 cm. 2. biophysical profile score is 8 out of 8. 3. Bilateral simple appearing ovarian cysts as above. Reviewed by: Andriy Fletcher MD on 09/03/2023 5:40 PM PST Approved by: Andriy Fletcher MD on 09/03/2023 5:40 PM PST Station ID: [id number]
== END 2023-09-03 15:03 | disposition home or self-care (01) ==
LOC: DI 15:02
PROVIDERS: ATTEND Nurse Practitioner
DX: O24.419 Gestational diabetes mellitus in pregnancy, unspecified control (principal); O09.93 Supervision of high risk pregnancy, unspecified, third trimester; O99.213 Obesity complicating pregnancy, third trimester; O28.1 Abnormal biochemical finding on antenatal screening of mother; O99.013 Anemia complicating pregnancy, third trimester; D64.9 Anemia, unspecified; O99.891 Other specified diseases and conditions complicating pregnancy; O34.83 Maternal care for other abnormalities of pelvic organs, third trimester; N83.292 Other ovarian cyst, left side; N83.291 Other ovarian cyst, right side; Z3A.00 Weeks of gestation of pregnancy not specified

== ENCOUNTER 2023-09-04 20:05 | Outpatient (CLI) | payer OTHER ==
--- NOTE | 2023-09-04 21:05 | PROVIDER PROGRESS NOTE ---
- Procedures OB Procedure Performed: NST Diagnosis/Indication for NST: Gestational Hypertension NST Procedure: NST Procedure Start Time 14:01 Stop Time 14:40 Service Date of procedure: 09/04/23 Procedure Details: NST done. + acels no decels. moderate variability. Findings: reactive nst - Plan Plan: discharge home. I have recommended to patient yesterday and this am that she should come in for induction today instead of waiting for Saturday. she has been opposed to this and is telling DORIE richards that she is still opposed. she had a very small amount of bloody show tonight and came in to be checked. no blood seen at [facility]. nst looks great. bps are same as last night and today in clinic. she does not want induction until Saturday. because i saw her this am, I have reviewed her care by phone. really this is a labor check at term and so I did not come it to see her. she told the RN she did not have headaches or visual changes. she looked quite good when I saw her a few hours ago. I have instructed her when to come back last night and this am.
[2023-09-05 05:43] VITALS: BP 159/86
== END 2023-09-04 21:10 | disposition home or self-care (01) ==
LOC: WFO 20:05 → FBP 20:07 → WFO 21:10
PROVIDERS: ATTEND Obstetrics & Gynecology
DX: O13.3 Gestational [pregnancy-induced] hypertension without significant proteinuria, third trimester (principal); Z3A.00 Weeks of gestation of pregnancy not specified
CPT/HCPCS: 99213

== ENCOUNTER 2023-09-06 07:52 | Inpatient (IN) | payer OTHER ==
[2023-09-06] MEDS: SODIUM CHLORIDE FLUSH 0.9% 10 ML SYRINGE IVP SCH (08:30)
[2023-09-06 08:53] LABS: BASOPHILS % (AUTO) 0.3 %; EOSINOPHILS # (AUTO) 0.1 10^3/uL (0.0-0.7); EOSINOPHILS % (AUTO) 0.9 %; HCT - HEMATOCRIT 32.2 % (37.0-47.0); HGB - HEMOGLOBIN 10.8 g/dL (12.0-16.0); LYMPHOCYTES # (AUTO) 2.2 10^3/uL (1.5-3.5); LYMPHOCYTES % (AUTO) 28.9 %; MEAN CORPUSCULAR HEMOGLOBIN 29.8 pg (27.0-31.0); MEAN CORPUSCULAR HGB CONC 33.5 g/dL (32.0-36.0); MEAN CORPUSCULAR VOLUME 88.7 fL (81.0-99.0); MEAN PLATELET VOLUME 10.1 fL (7.9-10.8); MONOCYTES # (AUTO) 0.5 10^3/uL (0.0-1.0); NEUTROPHILS # (AUTO) 4.8 10^3/uL (1.5-6.6); NEUTROPHILS % (AUTO) 62.5 %; PLT - PLATELET COUNT 248 10^3/uL (130-450); RED BLOOD COUNT 3.63 10^6/uL (4.20-5.40); RED CELL DISTRIBUTION WIDTH 13.2 % (12.0-15.0); WHITE BLOOD COUNT 7.6 x10^3/uL (4.8-10.8)
[2023-09-06 09:01] LABS: BILIRUBIN,TOTAL 0.5 mg/dL (0.2-1.0); CALCIUM 8.7 mg/dL (8.5-10.3); CREATININE 0.4 mg/dL (0.6-1.3); POTASSIUM 3.3 mmol/L (3.5-4.5)
[2023-09-06] MEDS ORDERED: METHYLERGONOVINE 0.2 MG/ML VIAL IM PRN (09:16)
[2023-09-06] MEDS ORDERED: fentaNYL 100 MCG/2 ML VIAL IVP PRN (09:16)
[2023-09-06] MEDS ORDERED: SODIUM CHLORIDE FLUSH 0.9% 10 ML SYRINGE IVP PRN (09:16)
[2023-09-06] MEDS ORDERED: lidocaine 1% 20 ML MDV ID PRN (09:16)
[2023-09-06] MEDS ORDERED: OXYTOCIN/SODIUM CHLORIDE 500 ML IV PRN (09:16)
[2023-09-06] MEDS ORDERED: ACETAMINOPHEN 325 MG TABLET PO PRN (09:16)
[2023-09-06] MEDS ORDERED: CARBOPROST TROMETHAMINE 250 MCG/ML AMP IM PRN (09:16)
[2023-09-06] MEDS ORDERED: miSOPROStoL 200 MCG TABLET BC PRN (09:16)
[2023-09-06] MEDS ORDERED: TRANEXAMIC ACID IN NACL 1,000 MG/100 ML BAG IV PRN (09:16)
[2023-09-06] MEDS ORDERED: OXYTOCIN 10 UNIT/ML VIAL IM PRN (09:16)
[2023-09-06] MEDS: miSOPROStoL 100 MCG TABLET BC SCH ×3 (09:36→23:21)
--- NOTE | 2023-09-06 09:36 | HISTORY & PHYSICAL EXAMINATION ---
Admit History - Risk/History: positive: Other (32yo G1 @ 37&1 with known mild preEclampsia presents for scheduled IOL doing well today, no BIRD / vix changes / RUQ pain.) Smoking Status: Never smoker - Other Maternal History Other Maternal History: ANL: A+/abneg/RI/RPRNR/HepBneg/HIVneg/GCCTnegneg/GBS POSITIVE ANC c/b: LMP: 12/12/22 WILFRIDO by LMP: 09/18/23 US: 02/18/2023 Final WILFRIDO: 09/25/2023 G1. FOB: Juan Problems: MILD PREECLAMPSIA - close monitoring - BPP / NST / growths IOL at 37 weeks 1. Chronic HTN - on baby ASA -baseline labs wnl 2. migraines -since 13w, with aura, was on imitrex - now tylenol and cold sleeves. was pre- menstrual. [X] recommend disability - Was not eligible. 3. Pts father with SCD, also anemic -resumed iron supplimentation 07/12 -HgB electrophoresis (ordered 07/12) 4. positive quad -T21 1:235 -cfDNA wnl 5. PTSD 75mg effexor XR QD, titrated down from 150 QD just during the . sees Jesusita Wilkerson at [facility], can self-titrate up, is aware of warning signs. her best friend committed suicide post- discussed planning. 6. Thyroid nodules/cysts -the fluid in her cyst came back cancerous - when she was 13. -have not been checked by U/S x 10 years - check TSH Q trimester - TSH 3.45/ T4:0.57 (levothyroxine started 07/12) -- 16 Aug: 1.39 7.Autism spectrum disorder -prefers receiving information through conversation. Doesn't want mirrors or seeing it. 8.Presyncope: -Normal echo/EKG in hospital. Cardiology seen -- will do halter monitor. -Work letter given for Juan for help during assessment. 9. GBS positive PMH: PTSD, thyroid nodules, anx/ dep, migraines, cHTN PSH: tooth surgeries x2 and R arm closed reduction POB: G1 PGYN: h/o abnormal pap 2012 - wnl since. no h/o STDs no h/o problems with ovaries or uterus Meds: PNV, FeSO4, Vit D, Effexor, synthroid, allergy med All: NKDA Soc: neg x3, lives with FOB and dogs Fam: unremarkable VS: elevated BP x1 in severe, and repeated elevated not severe. NAD Conjunctiva pink, pale sclera +S1, S2, CTAB, no increased work of breathing Abd soft, NT, ND, visibly gravid at term [place]: cephalic, 6#12oz EFM: 135 mod tito + A cells no D cells, reactive [place]: acontractile Cx: closed / unreachable per RN Ext: neg CCE Pre- Weight:207.0 BMI: 36.80 Blood type: A + Antibody: Neg CBC: PLT: 257 HCT: 36.6 HGB: 12.9 RUB: 24.0 VZV: 250 HBsAg: Negative HepC: NR RPR/AB-EIA: NR HIV: NR PAP: (unknown) GC/CT: obtained . HSV: Denies in self or partner Genetic testing: Discussed 03/05/23 positive DS Covid:no Flu: 05/07/2023 RSV 08/08 FAS: 05/06 Placenta: posterior with no previa Cord: 3VC RAINE: wnl EFW: 38%ile 50gm OGCT: 285 PROFILING TDAP:07/01 Breast Pump:07/01 3rd trimester H/H 9.9/29.6 PLT 236 GBS:Positive @35+3 Delivery plan: Contraception: Condoms. Previously IUD, Pills, but wants to avoid hormones. - HPI Current EDU 09/25/23 Gestation 37 Weeks and 2 Days 1 Vital Signs Temperature 98.1 F 09/06/23 08:51 Heart Rate 99 09/06/23 08:51 Respiratory Rate 09/06/23 08:51 Blood Pressure 151/84 H 09/06/23 08:51 Temperature 98.1 F 09/06/23 08:51 Heart Rate 99 09/06/23 08:51 Respiratory Rate 09/06/23 08:51 Blood Pressure 151/84 H 09/06/23 08:51 O2 Saturation If not protocol: Oxygen Flow, liters/minute - NST Procedure NST Procedure Start Time 20:20 Stop Time 20:55 Meds/Allgy - Home Medications Home Medications: Ambulatory Orders Medication Instructions Recorded Confirmed Cetirizine [ZyrTEC] 10 mg PO DAILY 01/10/23 01/10/23 Cyanocobalamin (Vitamin B-12) 1,000 mcg PO DAILY 01/10/23 01/10/23 [Vitamin B-12] Ferrous Sulfate [Feosol] 325 mg PO DAILY 01/10/23 01/10/23 Fluticasone [Flonase] 1 sprays ALEJANDRO DAILY 01/10/23 01/10/23 QUEtiapine [SEROquel] 100 mg PO QPM 01/10/23 01/10/23 Venlafaxine ER [Effexor ER] 150 mg PO DAILY 01/10/23 01/10/23 metFORMIN [Glucophage] 750 mg PO DAILY 01/10/23 01/10/23 traZODone [Desyrel] 50 mg PO HS 01/10/23 01/10/23 clindamycin HCL [Cleocin HCl] 300 mg PO Q6H #28 cap 07/31/23 - Allergies Allergies/Adverse Reactions: Allergies Allergy/AdvReac Type Severity Reaction Status Date / Time Sulfa (Sulfonamide Allergy Hives Verified 07/31/23 17:34 Antibiotics) Physical - Abdominal Exam Vital Signs: Temp Pulse Resp BP Pulse Ox O2 Flow Rate 98.1 F 99 18 151/84 H 09/06/23 08:51 09/06/23 08:51 09/06/23 08:51 09/06/23 08:51 Plan for Labor - Plan For Labor I expect patient to be DC'd or transferred within 96 hours.: Yes Plan for Labor: Problems: MILD SUPERIMPOSED PREECLAMPSIA - close monitoring - labs today reasuring - proceed with IOL FWB: cat 1 - c EFM IOL - start with miso - RBA discussed - augment with pit when indicated - anticipate GBS pos - PCN when active migraines - continue to monitor anemic - care with PPH positive quad -cfDNA wnl - will inform peds PTSD 75mg effexor XR QD, titrated down from 150 QD just during the . [facility], can self-titrate up, is aware of warning signs. her best friend committed suicide post- discussed planning. -- close monitoring Thyroid nodules/cysts - repeat TSH PP Autism spectrum disorder -prefers receiving information through conversation. Doesn't want mirrors or seeing it. Presyncope: -Normal echo/EKG in hospital. Care and monitoring, derick ELDER.
[2023-09-06] MEDS: LACTATED RINGERS 1,000 ML IV SCH ×2 (17:19→21:53)
[2023-09-06] MEDS: ONDANSETRON 4 MG/2 ML VIAL IVP PRN (18:11)
[2023-09-07] MEDS: LACTATED RINGERS 1,000 ML IV SCH ×3 (05:58→20:54)
[2023-09-07] MEDS ORDERED: MORPHINE 10 MG/ML VIAL IM ONE (08:05)
[2023-09-07] MEDS ORDERED: MORPHINE 10 MG/ML VIAL IVP ONE ×2 (08:05→18:01)
--- NOTE | 2023-09-07 08:11 | PROVIDER PROGRESS NOTE ---
Labor Progress Note - Uterine Monitoring Uterine Monitoring Mode: positive: External toco Contraction Intensity: positive: Mild Uterine Resting Tone: positive: Soft - Monitoring Heart Rate Baseline: 140 Heart Rate Variability: positive: Moderate (6-25 bmp) Accelerations: positive: Present, 15x15 Decelerations: positive: None Strip Review: positive: Category I - Vaginal Exam Dilation (in cm): 1.5 Effacement (%): 0 Station: -3 Cervical Position: Posterior - Labor Progress Note Labor Progress Note/Additional Text: s/p 3 doses of misoprostol continue with miso pt is tearful and "tired of this shit" encouragement provided outline of plan: more miso, breakfast, morphine rest, hot shower, continue with IOL did talk about if she were to want to go home for her mental wellness we would welcome her back instantly and she is the person in control (as much as any of us are) of this situation. Reviewed that this is a medical induction and risks of preEclampsia, she reports that going home isn't going to solve anything. Reviewed that I do not recommend or encourage or support a C/S right now. Let's continue with IOL. Pt ammenable. VS - none elevated to treatable range, one severe and immediately re-taken and elevated. no signs of worsening preE.
[2023-09-07] MEDS ORDERED: AMPICILLIN 2 GM in SODIUM CHLORIDE 0.9% MINIBAG 100 ML IV ONE (08:12)
[2023-09-07] MEDS: miSOPROStoL 100 MCG TABLET BC SCH ×3 (08:25→18:32)
[2023-09-07] MEDS: MORPHINE 10 MG/ML VIAL IVP ONE ×2 (08:30→12:55)
[2023-09-07] MEDS: ONDANSETRON 4 MG/2 ML VIAL IVP PRN ×2 (13:00→18:26)
[2023-09-07] MEDS ORDERED: METOCLOPRAMIDE 10 MG/2 ML VIAL IVP PRN (14:17)
[2023-09-07] MEDS ORDERED: AMPICILLIN 1 GM in SODIUM CHLORIDE 0.9% MINIBAG 100 ML IV SCH (16:00)
--- NOTE | 2023-09-07 18:34 | PROVIDER PROGRESS NOTE ---
Labor Progress Note - Uterine Monitoring Uterine Monitoring Mode: positive: External toco Contraction Frequency (min/apart): Q2-5 Contraction Intensity: positive: Mild Uterine Resting Tone: positive: Soft - Monitoring Monitor Mode: positive: External ultrasound Heart Rate Baseline: 140 Heart Rate Variability: positive: Moderate (6-25 bmp) Accelerations: positive: Present, 15x15 Decelerations: positive: None Strip Review: positive: Category I - Vaginal Exam Dilation (in cm): 1 Effacement (%): 50 Station: -3 Cervical Position: Posterior - Labor Progress Note Labor Progress Note/Additional Text: RBA discussed Cook catheter and misoprostol 25mcg PV placed 60 internal /50 external FWB cat 1 no signs of worsening pre E no severe BP warrenting treatment.
--- NOTE | 2023-09-07 23:13 | PROVIDER PROGRESS NOTE ---
Labor Progress Note - Uterine Monitoring Uterine Monitoring Mode: positive: None in use - Monitoring Monitor Mode: positive: None - Labor Progress Note Labor Progress Note/Additional Text: Pt had bath intermittent monitoring as baby has been cat 1 checked cook catheter -- still within cervix recheck in 3-4h and PRN. then nurse to recheck 2h after it comes out. and start pitocin if no further change after 2h.
[2023-09-08] MEDS: ONDANSETRON 4 MG/2 ML VIAL IVP PRN (00:34)
[2023-09-08] MEDS ORDERED: AMPICILLIN 2 GM in SODIUM CHLORIDE 0.9% MINIBAG 100 ML IV ONE (04:45)
[2023-09-08] MEDS ORDERED: ROPIVACAINE 0.2% 200 MG/100 ML BAG EP ONE (05:01)
[2023-09-08] MEDS ORDERED: LIDOCAINE 2%-EPI 1:100000 20 ML MDV ONE ×2 (05:02→09:18)
[2023-09-08] MEDS ORDERED: NALBUPHINE 10 MG/ML AMP IVP PRN (06:12)
[2023-09-08] MEDS ORDERED: LACTATED RINGERS 500 ML IV ONE (06:12)
[2023-09-08] MEDS ORDERED: diphenhydrAMINE INJ 50 MG/ML VIAL IVP PRN (06:12)
[2023-09-08] MEDS ORDERED: NALOXONE 0.4 MG/ML VIAL IVP PRN (06:12)
[2023-09-08] MEDS ORDERED: ePHEDrine 50 MG/ML VIAL IVP PRN (06:12)
[2023-09-08] MEDS ORDERED: METOCLOPRAMIDE 10 MG/2 ML VIAL IVP PRN (06:12)
--- NOTE | 2023-09-08 06:16 | ANESTHESIA ---
Pre-Anesthesia VS, & Labs - Diagnosis labor induction - Procedure labor epidural Vital Signs: Temp Pulse Resp BP Pulse Ox O2 Flow Rate 36.7 C 86 18 156/90 H 98 09/07/23 04:02 09/07/23 04:02 09/07/23 04:02 09/07/23 04:02 09/07/23 04:02 Height: 5 ft 3 in Weight (kg): 99.79 kg Body Mass Index: 38.9 BMI Classification: Obese - NPO Other (clears) - Is Patient ?: Yes - Lab Results Current Lab Results: Laboratory Tests 09/06/23 08:30: Blood Type A POSITIVE, Antibody Screen NEGATIVE 09/06/23 08:30: Sodium 136, Potassium 3.3 L, Chloride 104, Carbon Dioxide 23, Anion Gap 9.0, BUN 4 L, Creatinine 0.4 L, Estimated GFR (MDRD) 186, Glucose 178 H, Calcium 8.7, Total Bilirubin 0.5, AST 13, ALT 15, Alkaline Phosphatase 184 H, Total Protein 6.0 L, Albumin 3.0 L, Globulin 3.0, Albumin/Globulin Ratio 1.0 09/06/23 08:30: WBC 7.6, RBC 3.63 L, Hgb 10.8 L, Hct 32.2 L, MCV 88.7, MCH 29.8, MCHC 33.5, RDW 13.2, Plt Count 248, MPV 10.1, Neut # (Auto) 4.8, Lymph # (Auto) 2.2, Henry # (Auto) 0.5, Eos # (Auto) 0.1, Baso # (Auto) 0.0, Absolute Nucleated RBC 0.00, Nucleated RBC % 0.0 Fish Bones: 09/06/23 08:30 09/06/23 08:30 Home Medications and Allergies Active Medications Acetaminophen (Acetaminophen 325 Mg Tablet) 650 mg PO Q6H PRN PRN Reason: Mild Pain or Fever>38C(100.4F) Carboprost Tromethamine (Carboprost Tromethamine 250 Mcg/Ml Amp) 250 mcg IM Q15M PRN PRN Reason: Step 4: Hemorrhage protocol Stop: 09/11/23 09:17 Fentanyl (Fentanyl 100 Mcg/2 Ml Vial) 50 mcg IVP Q1H PRN PRN Reason: Severe Pain (Level 7-10) Last Admin: 09/08/23 04:44 Dose: 50 mcg Lactated Ringer's (Lr) 1,000 mls @ 100 mls/hr IV .Q10H JAQUELIN Last Admin: 09/07/23 20:54 Dose: 125 mls/hr Oxytocin/Sodium Chloride (Pitocin/Sodium Chloride) 500 mls @ 999 mls/hr IV PRN PRN; Protocol PRN Reason: POST- HEMORR PREVENTION Stop: 09/11/23 09:17 Tranexamic Acid (Tranexamic 1,000 Mg/100ml-Nacl) 1,000 mg in 100 mls @ 600 mls/hr IV .ONCE PRN PRN Reason: EBL >1200mL and within 3hr Stop: 09/11/23 09:17 Ampicillin Sodium 1 gm/ Sodium (Chloride) 100 mls @ 200 mls/hr IV Q4H JAQUELIN Oxytocin/Sodium Chloride (Pitocin/Sodium Chloride) 500 mls @ 0 mls/hr IV TITR JAQUELIN; Protocol Lidocaine HCl (Lidocaine 1% 20 Ml Mdv) 20 ml ID .ONCE PRN PRN Reason: PERINEAL REPAIR Stop: 09/11/23 09:17 Methylergonovine Maleate (Methylergonovine 0.2 Mg/Ml Vial) 0.2 mg IM .ONCE PRN PRN Reason: Step 2: Hemorrhage protocol Stop: 09/11/23 09:17 Metoclopramide HCl (Metoclopramide 10 Mg/2 Ml Vial) 10 mg IVP Q6HR PRN PRN Reason: Nausea / Vomiting Last Admin: 09/07/23 14:34 Dose: 10 mg Misoprostol (Misoprostol 200 Mcg Tablet) 800 mcg BC .ONCE PRN PRN Reason: Step 3: Hemorrhage protocol Stop: 09/11/23 09:17 Misoprostol (Misoprostol 100 Mcg Tablet) 25 mcg BC Q4H JAQUELIN Last Admin: 09/07/23 18:32 Dose: 25 mcg Ondansetron HCl (Ondansetron 4 Mg/2 Ml Vial) 4 mg IVP Q4HR PRN PRN Reason: Nausea / Vomiting Last Admin: 09/08/23 00:34 Dose: 4 mg Oxytocin (Oxytocin 10 Unit/Ml Vial) 10 unit IM .ONCE PRN PRN Reason: Step one: If no IV access Stop: 09/11/23 09:17 Sodium Chloride (Sodium Chloride Flush 0.9% 10 Ml Syringe) 10 ml IVP 0100,0900,1700 JAQUELIN Last Admin: 09/06/23 08:30 Dose: 10 ml Sodium Chloride (Sodium Chloride Flush 0.9% 10 Ml Syringe) 10 ml IVP PRN PRN PRN Reason: NEEDED PER PROVIDER ORDERS Cetirizine [ZyrTEC] 10 mg PO DAILY 01/10/23 Cyanocobalamin (Vitamin B-12) [Vitamin B-12] 1,000 mcg PO DAILY 01/10/23 Ferrous Sulfate [Feosol] 325 mg PO DAILY 01/10/23 Fluticasone [Flonase] 1 sprays ALEJANDRO DAILY 01/10/23 QUEtiapine [SEROquel] 100 mg PO QPM 01/10/23 Venlafaxine ER [Effexor ER] 150 mg PO DAILY 01/10/23 metFORMIN [Glucophage] 750 mg PO DAILY 01/10/23 traZODone [Desyrel] 50 mg PO HS 01/10/23 Allergies/Adverse Reactions: Allergies Allergy/AdvReac Type Severity Reaction Status Date / Time cantaloupe Allergy Anaphylaxis Verified 09/06/23 09:28 honeydew Allergy Anaphylaxis Verified 09/06/23 09:28 Sulfa (Sulfonamide Allergy Hives Verified 07/31/23 17:34 Antibiotics) tomato Allergy Anaphylaxis Verified 09/06/23 09:28 watermelon Allergy Anaphylaxis Verified 09/06/23 09:28 Anes History & Medical History - Anesthetic History Anesthesia Complications: reports: No previous complications - Medical History Cardiovascular: reports: None, Hypertension (gestational) Pulmonary: reports: None Gastrointestinal: reports: Other Endocrine/Autoimmune: reports: Other Blood Disorders: reports: Anemia Smoking Status: Never smoker History of Cancer?: No - Obstetrical History Events: reports: Other (32yo G1 @ 37&1 with known mild preEclampsia presents for scheduled IOL doing well today, no BIRD / vix changes / RUQ pain.) Exam General: Alert, Oriented x3 Dental: WNL Mouth Opening: Greater than 4 Fingerbreadths Neck Mobility: Normal Mallampati classification: II Thyromental Distance: greater than 6 cm Respiratory: Lungs clear Cardiovascular: Regular rate Plan Anesthesia Type: Epidural Consent for Procedure(s) Verified and Reviewed: Yes Code Status: Attempt Resuscitation ASA classification: 2-Mild systemic disease Is this case an emergency?: No
[2023-09-08] MEDS: OXYTOCIN/SODIUM CHLORIDE 500 ML IV SCH (06:21)
[2023-09-08] MEDS: LACTATED RINGERS 1,000 ML IV SCH (09:12)
[2023-09-08] MEDS: AMPICILLIN 1 GM in SODIUM CHLORIDE 0.9% MINIBAG 100 ML IV SCH ×4 (09:12→21:30)
[2023-09-08] MEDS: ROPIVACAINE 0.2% 200 MG/100 ML BAG EP PRN ×2 (11:00→18:46)
--- NOTE | 2023-09-08 14:02 | PROVIDER PROGRESS NOTE ---
Labor Progress Note - Uterine Monitoring Uterine Monitoring Mode: positive: External toco Contraction Frequency (min/apart): Q3-7 Contraction Intensity: positive: Moderate Uterine Resting Tone: positive: Soft - Monitoring Monitor Mode: positive: External ultrasound Heart Rate Baseline: 140 Heart Rate Variability: positive: Moderate (6-25 bmp) Accelerations: positive: Present, 15x15 Decelerations: positive: None Strip Review: positive: Category I - Vaginal Exam Dilation (in cm): 4 Effacement (%): 50 Station: -3 Cervical Position: Posterior - Labor Progress Note Labor Progress Note/Additional Text: SROM for clear fluid this morning IUPC placed pit at 15 no more severe range BP anticipate labor not in active labor yet still unchanged cervix from donohue treatment. no signs of worsening pre Eclampsia.
--- NOTE | 2023-09-08 18:45 | PROVIDER PROGRESS NOTE ---
Labor Progress Note - Uterine Monitoring Uterine Monitoring Mode: positive: IUPC Contraction Frequency (min/apart): Q7 Contraction Intensity: positive: Mild Uterine Resting Tone: positive: Soft - Monitoring Monitor Mode: positive: External ultrasound Heart Rate Baseline: 140 Heart Rate Variability: positive: Moderate (6-25 bmp) Accelerations: positive: Present, 15x15 Decelerations: positive: None Strip Review: positive: Category I - Vaginal Exam Dilation (in cm): 4 Effacement (%): 0 Station: -3 Cervical Position: Posterior - Labor Progress Note Labor Progress Note/Additional Text: no progress in labor pit at 12 long discussion patient is exhausted still not in active labor will titrate pit to 20 -- 2h and recheck cervix if no change -- failed IOL - miso x6 - donohue balloon - SROM - pit x1 with pit break - pit x2 in the midst of 2 separate epidurals and 3 days of IOL. indicated for pre Eclampsia. no signs of worsening pre Eclampsia. FWB cat 1, cEFM.
--- NOTE | 2023-09-08 21:50 | PROVIDER PROGRESS NOTE ---
Labor Progress Note - Uterine Monitoring Uterine Monitoring Mode: positive: IUPC Contraction Frequency (min/apart): Q3 Contraction Intensity: positive: Moderate to strong Uterine Resting Tone: positive: Soft - Monitoring Monitor Mode: positive: External ultrasound Heart Rate Baseline: 140 Heart Rate Variability: positive: Moderate (6-25 bmp) Accelerations: positive: Present, 15x15 Decelerations: positive: None Strip Review: positive: Category I - Vaginal Exam Dilation (in cm): 4 Effacement (%): 50 Station: -3 Cervical Position: Midposition - Labor Progress Note Labor Progress Note/Additional Text: Pt now at pit of 20. on exam -- bulging bag present. AROM of this bag light mec and bloody fluid, good amount of fluid (3 towels and sheets and on the floor) old IUPC removed - explains why there was no flash back new IUPC placed pt reports she feels the baby has moved down "out of my ribs" and is eager to continue to labor. period of minimal variability for about 10 mins after AROM and new IUPC has since resolved. no D cells. no signs of worsening pre Eclampsia.
--- NOTE | 2023-09-09 00:42 | PROVIDER PROGRESS NOTE ---
Labor Progress Note - Uterine Monitoring Uterine Monitoring Mode: positive: IUPC Contraction Frequency (min/apart): 3 Contraction Intensity: positive: Strong Uterine Resting Tone: positive: Soft - Monitoring Monitor Mode: positive: External ultrasound Heart Rate Baseline: 140 Heart Rate Variability: positive: Moderate (6-25 bmp) Accelerations: positive: Present, 15x15 Decelerations: positive: None Strip Review: positive: Category I - Vaginal Exam Dilation (in cm): 6 Effacement (%): 80 Station: -3 Cervical Position: Midposition - Labor Progress Note Labor Progress Note/Additional Text: making cervical change breathing through / uncomfortable with pelvic pressure no further remarkable bleeding no signs of worsening preE pit at 28 - IUPC now active labor
[2023-09-09] MEDS: AMPICILLIN 1 GM in SODIUM CHLORIDE 0.9% MINIBAG 100 ML IV SCH (01:35)
[2023-09-09] MEDS: ROPIVACAINE 0.2% 200 MG/100 ML BAG EP PRN (02:08)
[2023-09-09] MEDS ORDERED: fentaNYL 100 MCG/2 ML VIAL ONE (02:22)
[2023-09-09] MEDS ORDERED: ONDANSETRON 4 MG/2 ML VIAL ONE (02:23)
[2023-09-09] MEDS ORDERED: LIDOCAINE-PF 2% 10 ML AMP SUBQ ONE ×2 (02:24→03:25)
[2023-09-09] MEDS: ONDANSETRON 4 MG/2 ML VIAL IVP PRN ×2 (02:36→09:15)
--- NOTE | 2023-09-09 03:19 | PROVIDER PROGRESS NOTE ---
Labor Progress Note - Uterine Monitoring Uterine Monitoring Mode: positive: IUPC Contraction Frequency (min/apart): Q3 Contraction Intensity: positive: Strong Uterine Resting Tone: positive: Soft - Monitoring Monitor Mode: positive: External ultrasound Heart Rate Baseline: 140 Heart Rate Variability: positive: Moderate (6-25 bmp) Accelerations: positive: Present, 15x15 Decelerations: positive: None Strip Review: positive: Category I - Vaginal Exam Dilation (in cm): 5 Effacement (%): 80 Station: -2 (with caput) Cervical Position: Midposition - Labor Progress Note Labor Progress Note/Additional Text: no change in cervix despite pit titration and adequate ctx patient also in acute pain - reviewed location - possible back strain? epidural bolussed by anesthesia until patient felt some relief we did turn off pit in preparation for moving to the OR - is at 28. CTAB RRR - tachycardia after pain relief rechecked her cervix -- affirmed no change from midnight. discussed recommend proceed to 1LTCS for arrest of dilation pt ammenable and will proceed to OR.
[2023-09-09] MEDS ORDERED: ACETAMINOPHEN 500 MG TABLET PO ONE (03:21)
[2023-09-09] MEDS ORDERED: GABAPENTIN 400 MG CAPSULE PO ONE (03:21)
[2023-09-09] MEDS ORDERED: CITRIC ACID/SODIUM CITRATE 15 ML UDC PO ONE (03:21)
[2023-09-09] MEDS ORDERED: AZITHROMYCIN INJ 500 MG in SODIUM CHLORIDE 0.9% 250 ML IV ONE (03:21)
[2023-09-09] MEDS ORDERED: ceFAZolin (2G) 2 GM in SODIUM CHLORIDE 0.9% MINIBAG 100 ML IV ONE (03:21)
[2023-09-09] MEDS ORDERED: OXYTOCIN 10 UNIT/ML VIAL ONE (03:26)
[2023-09-09] MEDS ORDERED: SODIUM CHLORIDE 0.9% 10 ML VIAL IVP ONE (03:26)
[2023-09-09] MEDS ORDERED: OXYTOCIN/SODIUM CHLORIDE 500 ML IV ONE (03:27)
[2023-09-09] MEDS ORDERED: LACTATED RINGERS 1,000 ML IV SCH ×2 (04:00→06:00)
[2023-09-09] MEDS ORDERED: MORPHINE PF 5 MG/10 ML VIAL EP ONE (05:00)
[2023-09-09] MEDS ORDERED: MORPHINE PF 5 MG/10 ML VIAL ONE (05:04)
[2023-09-09] MEDS ORDERED: OXYTOCIN/SODIUM CHLORIDE 500 ML IV PRN (05:23)
[2023-09-09] MEDS ORDERED: hydrALAZINE INJ 20 MG/ML VIAL IVP PRN ×2 (05:23)
[2023-09-09] MEDS ORDERED: LABETALOL 20 MG/4 ML SYRINGE IVP PRN ×3 (05:23)
[2023-09-09] MEDS ORDERED: NIFEdipine 10 MG CAPSULE PO PRN (05:23)
[2023-09-09] MEDS ORDERED: ONDANSETRON 4 MG/2 ML VIAL IVP PRN ×3 (05:23→05:47)
[2023-09-09] MEDS ORDERED: NALOXONE 0.4 MG/ML VIAL IVP PRN ×3 (05:23→05:47)
[2023-09-09] MEDS ORDERED: oxyCODONE 5 MG TABLET PO PRN (05:23)
--- NOTE | 2023-09-09 05:29 | OPERATIVE REPORT ---
Operative Report - General Admit Date: 09/06/23 Procedure Date: 09/09/23 - Other Other Information/Narrative: OPERATIVE NOTE Pre-operative diagnosis: 1. IUP @ 37&5 2. Arrest of Dilation 3. mild PreEclampsia Procedure: 1'LTCS via pfannensteil skin incision Post-operative diagnosis: MYRANDA Surgeon: Marizol [employer] Operator: Porsha Anesthesia: bolussed epidural Findings: viable female infant, vertex presentation, apgars 7/8, mec stained placenta normal uterus normal tubes & ovaries bilaterally with 4cm fluid filled cyst within L ovary no notable adhesions Complications: None apparent EBL: 500cc IVF: 700cc UOP: 200cc Procedure in detail: After risks benefits and alternatives, as well as indication for procedure and anticipated post-operative recovery course, were discussed with the patient informed consent was obtained and patient was taken to the operating theater where spinal anesthesia was administered without difficulty. Mishra catheter had been previously inserted in normal sterile fashion. Pt was prepared and draped in normal sterile fashion. Anesthesia was tested and found to be adequate. Prior to skin incision pt received recommended antibiotics, surgical time out was performed, and all persons in the operating theater participated in time out and agreed. Pfannensteil skin incision made with scalpel. Carried down to level of fasia. Fascia incised and extended. Anterior aspect of rectus sheath dissected off of rectus muscle without difficulty. Peritoneum entered without difficulty and surgical field extended with gentle lateral traction. Lower uterine segment identified, well developed. Uterine incision made with scalpel, uterus entered bluntly and incision extended bluntly. Surgeons right hand entered into lower uterine segment, presenting part elevated to level of incision and delivered atraumatically. Cord clamped delayed x 58s, and then cut x2, baby handed to awaiting darkroom worker, apgars as noted above. Placenta delivered manually. Uterus exteriorized and wrapped in moist lap. Uterine cavity cleaned with moist lap and found to be free of membranes or debris. Uterine incision closed with 0 vicryl, running suture, and subsequently imbricated with the same suture. Incision inspected, hemostatic. Gutters cleaned. Irrigation. Uterus returned to abdominal cavity. Additional suture placed in midline for hemostasis. All inspected, hemostatic. Peritoneum reapproximated without suture. Muscles inspected, fascia inspected, hemostatic. Fascia closed with 0 looped PDS in running fashion. Subcutaneous tissue irrigated, and then closed with 2.0 vicryl in running fas hion. Skin incision closed with subcuticular sutures with 4.0 vicryl. Pt and tolerated procedure well. All counts correct. Pt to PACU in stable condition.
[2023-09-09] MEDS ORDERED: LACTATED RINGERS 800 ML IV ONE (05:40)
[2023-09-09] MEDS ORDERED: MORPHINE 2 MG/ML CARPUJECT IVP PRN (05:45)
[2023-09-09] MEDS ORDERED: ePHEDrine 50 MG/ML VIAL IVP PRN ×2 (05:45→05:47)
[2023-09-09] MEDS ORDERED: fentaNYL 100 MCG/2 ML VIAL IVP PRN (05:45)
[2023-09-09] MEDS ORDERED: ATROPINE ABBOJECT 1 MG/10 ML SYRINGE IVP PRN (05:45)
[2023-09-09] MEDS ORDERED: METOCLOPRAMIDE 10 MG/2 ML VIAL IVP PRN ×2 (05:45→05:47)
[2023-09-09] MEDS ORDERED: HYDROmorphone 0.5 MG/0.5 ML SYRINGE IVP PRN (05:45)
[2023-09-09] MEDS ORDERED: diphenhydrAMINE INJ 50 MG/ML VIAL IVP PRN (05:47)
[2023-09-09] MEDS ORDERED: NALBUPHINE 10 MG/ML AMP IVP PRN (05:47)
[2023-09-09] MEDS ORDERED: KETOROLAC 30 MG/ML VIAL ONE (06:04)
[2023-09-09] MEDS: KETOROLAC 15 MG/ML VIAL IVP ONE (06:10)
--- NOTE | 2023-09-09 06:20 | ANESTHESIA POST OP EVALUATION ---
Anesthesia Post Eval - Post Anesthesia Eval Vitals: Last Vital Signs Temp 37.0 C 09/09/23 06:10 Pulse 89 09/09/23 06:10 Resp 16 09/09/23 06:10 BP 166/98 H 09/09/23 06:10 Pulse Ox 97 09/09/23 06:10 O2 Flow Rate CV Function Including HR & BP: Stable Pain Control: Satisfactory Nausea & Vomiting: Negative Mental Status: Baseline Respiratory Status: Airway Patent Hydration Status: Satisfactory Anesthesia Complications: None
[2023-09-09 07:22] LABS: HCT - HEMATOCRIT 32.3 % (37.0-47.0); HGB - HEMOGLOBIN 10.6 g/dL (12.0-16.0); MEAN CORPUSCULAR HEMOGLOBIN 29.6 pg (27.0-31.0); MEAN CORPUSCULAR HGB CONC 32.8 g/dL (32.0-36.0); MEAN CORPUSCULAR VOLUME 90.2 fL (81.0-99.0); MEAN PLATELET VOLUME 10.4 fL (7.9-10.8); RED BLOOD COUNT 3.58 10^6/uL (4.20-5.40); RED CELL DISTRIBUTION WIDTH 13.2 % (12.0-15.0)
[2023-09-09] MEDS: ACETAMINOPHEN 500 MG TABLET PO SCH ×2 (11:33→20:11)
[2023-09-09] MEDS: KETOROLAC 30 MG/ML VIAL IVP SCH ×3 (12:27→23:58)
[2023-09-09] MEDS: DOCUSATE SODIUM 100 MG CAPSULE PO SCH (20:11)
[2023-09-09] MEDS: SIMETHICONE CHEW 80 MG TABLET PO PRN (23:58)
[2023-09-10] MEDS ORDERED: KETOROLAC 30 MG/ML VIAL IVP SCH
[2023-09-10] MEDS: ACETAMINOPHEN 500 MG TABLET PO SCH ×4 (04:07→22:23)
[2023-09-10] MEDS: IBUPROFEN 600 MG TABLET PO SCH ×4 (06:00→22:24)
[2023-09-10] MEDS: DOCUSATE SODIUM 100 MG CAPSULE PO SCH ×3 (10:03→22:24)
[2023-09-10] MEDS: KETOROLAC 15 MG/ML VIAL IVP ONE (16:13)
[2023-09-10] MEDS: LACTATED RINGERS 1,000 ML IV SCH ×2 (16:14→16:15)
[2023-09-10] MEDS: LABETALOL 100 MG TABLET PO SCH (16:16)
[2023-09-10] MEDS: miSOPROStoL 100 MCG TABLET BC SCH (16:17)
[2023-09-10] MEDS: SODIUM CHLORIDE FLUSH 0.9% 10 ML SYRINGE IVP SCH (16:18)
[2023-09-10] MEDS: OXYTOCIN/SODIUM CHLORIDE 500 ML IV SCH (16:18)
--- NOTE | 2023-09-10 20:25 | PROVIDER PROGRESS NOTE ---
Subjective - Prog Note Date Prog Note Date: 09/10/23 Prog Note Time: 20:23 - Subjective Pt reports feeling: Improved Subjective: Pt well, lochia appropriate, gabriel PO, + void, + flat, + ambulation Feeding going well -- breast and bottle -- working on latch Some anxiety about jaundice in baby -- discussed, RN provided a lot of education as well. VSS NAD Conjunctiva pink, pale sclera +S1, S2 CTAB Breasts soft, not engorged, no nipple cracking Abd soft, NT, ND Fundus firm below umbilicus INC CDI Ext: neg CC, 2+ edema, symmetrical. Objective - Vital Signs/Intake & Output Reviewed Vital Signs: Yes Vital Signs: Vital Signs x48h Temp Pulse Resp BP 09/10/23 13:00 97.9 F 82 16 153/89 H Intake & Output: Intake & Output 09/07/23 09/08/23 09/09/23 09/10/23 23:59 23:59 23:59 23:59 Intake Total 2866.667 2579.317 232.683 250 Output Total 1800 2451 101 Balance 2866.667 779.317 -2218.317 149 - Lab Results Fish Bones: 09/09/23 06:42 09/06/23 08:30 Other Labs: Lab Results x24hrs 09/09/23 09/06/23 Range/Units 22:37 08:30 POC Whole Bld Glucose 58 L* (70 - 100) mg/dL Crossmatch IS Only See Detail Assessment/Plan - Problem List (1) Pre-eclampsia Impression: resolved some BP increasing now started labetalol 100mg BID continue to follow adding lasix x1 - was not severe pre E, and would clinically benefit from PO lasix x1. (2) state Impression: meeting all milestones continue to advance anticipate D/C home tomorrow (3) Arrest of dilation, delivered, current hospitalization Impression: s/p C/S resolved continuing to meet milestones anticipate D/C home tomorrow. (4) Anxiety Impression: continue home meds care with PP (5) Anemia Impression: acute blood loss anemia asymptomatic adding PO iron. Qualifiers: Anemia type: other cause
[2023-09-10] MEDS: SIMETHICONE CHEW 80 MG TABLET PO PRN (22:23)
[2023-09-10] MEDS: FUROSEMIDE 20 MG TABLET PO SCH ×2 (22:24→22:32)
[2023-09-11] MEDS: IBUPROFEN 600 MG TABLET PO SCH ×3 (04:20→16:56)
[2023-09-11] MEDS: ACETAMINOPHEN 500 MG TABLET PO SCH ×2 (06:33→15:05)
[2023-09-11] MEDS: DOCUSATE SODIUM 100 MG CAPSULE PO SCH (09:11)
[2023-09-11] MEDS: LABETALOL 100 MG TABLET PO SCH (09:11)
[2023-09-11] MEDS: FERROUS SULFATE 325 MG TABLET PO SCH ×2 (09:11→20:23)
[2023-09-11] MEDS: FUROSEMIDE 20 MG TABLET PO SCH (16:15)
[2023-09-11] MEDS ORDERED: LABETALOL 100 MG TABLET PO SCH (21:00)
--- NOTE | 2023-09-11 21:27 | DISCHARGE SUMMARY ---
"Discharge Summary Admit Date: 09/06/23 Discharge Date: 09/11/23 Discharging Provider: rupinder Primary Care Provider: rupinder Code Status: Attempt Resuscitation Condition at Discharge: Good Discharge Disposition: 01 Home, Self Care - DIAGNOSES Admission Diagnoses: mild pre eclampsia at 37 weeks gestation Discharge Diagnoses with Status of Each Condition: mild pre eclampsia - resolved - on 200mg labetalol BID aware of precautions will f/u saturday and by phone PRN - HPI History of Present Illness: Pt well, lochia appropriate, gabriel PO, + void, + flat, + ambulation Feeding going well -- breast & bottle Pt reports ready to go home, has safe home to return to Reviewed: discharge instructions, post- instructions, follow up instructions, precautions, precautions regarding: feeding, depression, bleeding, and anticipated post- course. reviewed blood pressure precautions and pre eclampsia precautions. All questions answered Pt verbalized understanding VS - no severe range BP, increasing labetalol to 200mg PO BID she will call us with BP if elevated. she is well connected with health care and has reliable transportation at home. NAD Conjunctiva pink, pale sclera +S1, S2 CTAB Breasts soft, not engorged, no nipple cracking Abd soft, NT, ND Fundus firm below umbilicus INC: CDI Perineum bleeding appropriate Ext: neg CCE - CONSULTS | PROCEDURES Procedures: IOL Epidural x2 1LTCS post op care post care support - HOSPITAL COURSE Hospital Course: prolonged several day induction miso pit donohue pit AROM pit IUPC pit arrest of dilation 1LTCS without incident routine post op and post care initiation of labetalol 100mg BID and lasix PO x 5 days. - ALLERGIES Allergies/Adverse Reactions: Allergies Allergy/AdvReac Type Severity Reaction Status Date / Time cantaloupe Allergy Anaphylaxis Verified 09/06/23 09:28 honeydew Allergy Anaphylaxis Verified 09/06/23 09:28 Sulfa (Sulfonamide Allergy Hives Verified 07/31/23 17:34 Antibiotics) tomato Allergy Anaphylaxis Verified 09/06/23 09:28 watermelon Allergy Anaphylaxis Verified 09/06/23 09:28 - MEDICATIONS Home Medications: Ambulatory Orders Medication Instructions Recorded Confirmed Cetirizine [ZyrTEC] 10 mg PO DAILY 01/10/23 01/10/23 Cyanocobalamin (Vitamin B-12) 1,000 mcg PO DAILY 01/10/23 01/10/23 [Vitamin B-12] Ferrous Sulfate [Feosol] 325 mg PO DAILY 01/10/23 01/10/23 Fluticasone [Flonase] 1 sprays ALEJANDRO DAILY 01/10/23 01/10/23 QUEtiapine [SEROquel] 100 mg PO QPM 01/10/23 01/10/23 Venlafaxine ER [Effexor ER] 150 mg PO DAILY 01/10/23 01/10/23 metFORMIN [Glucophage] 750 mg PO DAILY 01/10/23 01/10/23 traZODone [Desyrel] 50 mg PO HS 01/10/23 01/10/23 clindamycin HCL [Cleocin HCl] 300 mg PO Q6H #28 cap 07/31/23 - LABS Result Diagrams: 09/09/23 06:42 09/06/23 08:30 - QUALITY (Female Hip Fx Only) Was patient sent home on osteoporosis medication?: No - FOLLOW UP Follow Up: 2 days - TIME SPENT Time Spent in Discharge (Minutes): 30"
--- NOTE | 2023-09-11 21:37 | Discharge Plan ---
Discharge Plan Problem Reviewed?: Yes Disposition: Home, Self Care Condition: Good Prescriptions: oxyCODONE [Roxicodone] 5 mg PO Q4HR PRN #5 tab PRN Reason: Severe Pain 6 -10 Ibuprofen [Motrin] 600 mg PO Q6HR #60 tab Docusate Sodium 100Mg Capsule [Colace 100Mg Capsule] 200 mg PO BID #40 cap Ferrous Sulfate [Feosol] 325 mg PO BIDWM #60 tab Furosemide [Lasix] 20 mg PO HS #3 tab Labetalol [Trandate] 200 mg PO BID #60 tab Acetaminophen [Tylenol] 1,000 mg PO Q8H #60 tab Diet: Regular Activity Restrictions: No Restrictions Shower Restrictions: No Driving Restrictions: No Instruction Topics: Vaginal After, Breastfeed How To, Vaginal Health Concerns: care with blood pressure low threshold 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 care with depression & anxiety. Plan of Treatment: OK to D/C home continue labetalol and check BP regularly call and come to clinic on saturday Assessment: stable OK to D/C home Additional Instructions or Follow Up instructions: OK to d/c home with CLOSE follow up No Smoking: If you smoke, Please STOP! Call for help. Follow-up with: Lewis Fontana MD [Provider Admit Priv/Credential] -
[2023-09-12 00:13] VITALS: O2SAT 98
[2023-09-12 00:24] VITALS: BP 138/80
--- NOTE | 2023-09-12 00:42 | Labor Flowsheet ---
Labor Flowsheet Datetime Report Generated by CPN: 09/12/2023 00:42 Datetime: 09/09/2023 03:55 VITAL SIGNS NBP Sys/Mary/Mean (mmHg): 131 : 80 : 89 Pulse: 98 LaborFlag: Labor Datetime: 09/09/2023 03:44 ASSESSMENT A Monitor Mode: External US FHR Baseline Rate : 140 Variability: Moderate 6-25 bpm Accelerations: 10X10 Decelerations: None Category: Category I Datetime: 09/09/2023 02:59 UTERINE ACTIVITY Monitor Mode: External Frequency (min): irregular Quality: Moderate Duration (sec): 50-120 Pattern: Normal: <= 5 Contractions in 10 Minutes Resting Tone (Palpate): Relaxed Datetime: 09/09/2023 02:30 Contraction Comments: unable to assess true contraction pattern, patirnt crying vigorously Datetime: 09/09/2023 01:59 Monitor Interventions for UA: [place] Adjusted Resting Tone IUP (mmHg): 0 Intensity IUP (mmHg): 25 Pitocin Checklist: At Least 1 Acceleration of 15 bpm x 15 Seconds in 30 Minutes or Adequate Variabi lity; No More than 1 Late Deceleration Occurred in Past 30 Minutes; No More than 2 Variable Decelerat ions > 60 Seconds in Duration and decreasing >60 bpm in 30 minutes; No More than 5 Uterine Contractio ns in 10 Minutes for any 20 Minute Interval; Uterus Palpates Soft between Contractions; IUPC Resting Tone less than 25 mmHg Datetime: 09/08/2023 23:00 Monitor Interventions for FHR: Ultrasound Adjusted Datetime: 09/08/2023 21:07 VAGINAL EXAM Dilatation (cm): 4.0 Effacement (%): 50 Station: -3 Exam by: Membrane Status: Ruptured Membranes Rupture Method: Artificial Amniotic Fluid Color: Bloody Amniotic Fluid Amount: Large Amniotic Fluid Odor: Normal Datetime: 09/08/2023 21:05 Patient Care Comments: iupc replaced Datetime: 09/08/2023 19:07 MEDICATIONS Pitocin (milliunits): Increased to @ 16 Datetime: 09/08/2023 19:00 [place] Units (mmHg): 40 Datetime: 09/08/2023 17:51 COMMUNICATION Communication: Call/Page Placed to Provider Communication Comments: Pt. very tearful and is done, doesn't want to do this anymore. Datetime: 09/08/2023 17:30 FHR Baseline Changes: No Baseline Change Datetime: 09/08/2023 17:24 Temperature (C): 36.9 Datetime: 09/08/2023 15:51 PATIENT CARE Patient Position/Activity: Right Lateral Datetime: 09/08/2023 14:15 Medication Comments: POC. Pitocin off Datetime: 09/08/2023 14:10 SpO2 (%): 97 Datetime: 09/08/2023 10:46 Hygiene: Lucretia Care Datetime: 09/08/2023 09:56 Epidural Procedure: Test Dose Datetime: 09/08/2023 09:51 Anesthesia Comments: lidocaine Datetime: 09/08/2023 09:41 Epidural Positioning: Sitting Datetime: 09/08/2023 09:23 Comments: maternal heart recorded due to pt. positioning Datetime: 09/08/2023 08:47 PAIN Pain Scale: 10 Datetime: 09/08/2023 07:55 Epidural Procedure Other: Cath Intact Anesthesia Level Check: T11 Datetime: 09/08/2023 07:37 Vital Sign Comments: MD notified of BP Datetime: 09/08/2023 07:26 Pain Assessment Comments: sleeping Datetime: 09/08/2023 07:17 Connect Comments: Report given to Sujatha Laura RN. Patient care relinquished. Datetime: 09/08/2023 06:42 Vaginal Bleeding: Normal Show Cervix, Consistency: Moderate Cervix, Position: Posterior Vaginal Exam Comments: Patient consent obtained prior to SVE. I/O Interventions: Mishra Cath Inserted Datetime: 09/08/2023 05:41 TEACHING Plan of Care: Plan of Care Discussed Teaching Comments: Patient educated on increased fall risk. Patient verbalizes understanding and ag reement to not attempt to get out of bed, will call for assistance. Call light within reach. Datetime: 09/08/2023 05:04 PROCEDURE TIME OUT Procedure Verify: Correct Patient Identity; Correct Side and Site are Marked; Accurate Procedure Co nsent Form; Agreement on Procedure to be Done; Correct Patient Position; Relevant Images and Results are Properly Labeled and Displayed; Addressed Need to Administer Antibiotics or Fluids for Irrigation ; Safety Precautions Based on Patient History or Medication Use ANESTHESIA Anesthesia Plans: Epidural Datetime: 09/08/2023 04:54 Antibiotics: Ampicillin IV 2 Gm Datetime: 09/08/2023 04:44 Pain Presence: Intermittent Pain Location: Abdomen; Back Pain Goal: 4 Pain Relief Measures: Pain Medication Given Analgesics/Sedatives: Fentanyl (mcg) @ 50 Datetime: 09/08/2023 00:33 Temperature Route: Oral Antiemetics/Antacids: Zofran (mg) @ (Annotations: 4) Datetime: 09/07/2023 23:45 Membranes Ruptured Date/Time: 09/07/2023 23:45 Datetime: 09/07/2023 17:30 Pain Type: Cramping Pain Coping: Talking Through Contractions; Breathing Through Contractions Comfort Measures: Breathing/Relaxation; Family Support Datetime: 09/07/2023 08:35 Cervical Ripening Agents: Cytotec @ Datetime: 09/07/2023 08:30 Pain Management: IV Narcotics Datetime: 09/06/2023 08:08 Stage of : Labor Datetime: 08/20/2023 17:30 MATERNAL ASSESSMENT Level of Consciousness: Alert DTR's/Clonus: DTRs 2+; No Clonus Headache: Denies Nausea/Vomiting: Denies RUQ Epigastric Pain: Denies Datetime: 08/20/2023 17:25 Respirations: 16
== END 2023-09-11 21:30 | disposition home or self-care (01) | DRG 787 ==
LOC: WFO 07:52 → FBP 07:55 → WFO 09:15 → FBP 09:16
PROVIDERS: ADMIT Obstetrics & Gynecology; ATTEND Obstetrics & Gynecology
PROC: 3E0DXGC Introduction of Other Therapeutic Substance into Mouth and Pharynx, External Approach (ICD-10-PCS; principal; 2023-09-06)
PROC: 0U7C7ZZ Dilation of Cervix, Via Natural or Artificial Opening (ICD-10-PCS; 2023-09-07)
PROC: 3E033VJ Introduction of Other Hormone into Peripheral Vein, Percutaneous Approach (ICD-10-PCS; 2023-09-08)
PROC: 10907ZC Drainage of Amniotic Fluid, Therapeutic from Products of Conception, Via Natural or Artificial Opening (ICD-10-PCS; 2023-09-08)
PROC: 10D00Z1 Extraction of Products of Conception, Low, Open Approach (ICD-10-PCS; 2023-09-09)
DX: O14.04 Mild to moderate pre-eclampsia, complicating childbirth (principal); D62 Acute posthemorrhagic anemia; F84.0 Autistic disorder; O99.354 Diseases of the nervous system complicating childbirth; O62.1 Secondary uterine inertia; O99.824 Streptococcus B carrier state complicating childbirth; O99.02 Anemia complicating childbirth; Z3A.37 37 weeks gestation of pregnancy; Z37.0 Single live birth; O99.892 Other specified diseases and conditions complicating childbirth; R00.0 Tachycardia, unspecified; O77.0 Labor and delivery complicated by meconium in amniotic fluid; O99.344 Other mental disorders complicating childbirth; F41.9 Anxiety disorder, unspecified; O34.83 Maternal care for other abnormalities of pelvic organs, third trimester; N83.202 Unspecified ovarian cyst, left side; O99.214 Obesity complicating childbirth; G43.909 Migraine, unspecified, not intractable, without status migrainosus; O99.891 Other specified diseases and conditions complicating pregnancy; F43.10 Post-traumatic stress disorder, unspecified; E04.2 Nontoxic multinodular goiter; O90.81 Anemia of the puerperium; O24.425 Gestational diabetes mellitus in childbirth, controlled by oral hypoglycemic drugs
CPT/HCPCS: 36415; 80053; 85025; 85027; 86850; 86900; 86901; 86920; 87070; 87075; 87205; A9270; J2274; J2765; J7120

== ENCOUNTER 2023-10-14 16:40 | Outpatient (CLI) | payer OTHER ==
[2023-10-14 17:02] LABS: HCT - HEMATOCRIT 38.6 % (37.0-47.0); HGB - HEMOGLOBIN 12.7 g/dL (12.0-16.0); MEAN CORPUSCULAR HEMOGLOBIN 28.7 pg (27.0-31.0); MEAN CORPUSCULAR HGB CONC 32.9 g/dL (32.0-36.0); MEAN CORPUSCULAR VOLUME 87.1 fL (81.0-99.0); MEAN PLATELET VOLUME 9.3 fL (7.9-10.8); RED BLOOD COUNT 4.43 10^6/uL (4.20-5.40); RED CELL DISTRIBUTION WIDTH 11.6 % (12.0-15.0); WHITE BLOOD COUNT 6.4 x10^3/uL (4.8-10.8)
[2023-10-14 17:36] LABS: THYROID STIMULATING HORMONE 0.89 uIU/mL (0.34-5.60)
[2023-10-14 21:42] LABS: ESTIMATED AVERAGE GLUCOSE 111 mg/dL (70-100); HEMOGLOBIN A1c% 5.5 % (4.27-6.07)
== END 2023-10-14 16:41 | disposition home or self-care (01) ==
LOC: LAB 16:40
PROVIDERS: ATTEND Obstetrics & Gynecology
DX: O99.891 Other specified diseases and conditions complicating pregnancy (principal); R94.6 Abnormal results of thyroid function studies; O24.419 Gestational diabetes mellitus in pregnancy, unspecified control; O99.019 Anemia complicating pregnancy, unspecified trimester
CPT/HCPCS: 36415; 82951; 83036; 84439; 84443; 85027

== ENCOUNTER 2023-12-24 13:32 | Emergency (ER) | payer OTHER ==
[2023-12-24] MEDS: HYDROcod/ACETAM 5/325 MG TABLET PO STA (14:15)
[2023-12-24] MEDS: ONDANSETRON ODT 4 MG TABLET TL STA (14:15)
--- NOTE | 2023-12-24 14:24 | ED Physician Documentation ---
History of Present Illness - Stated complaint Stated Complaint: LT THUMB PX, LOSS OF MOVEMENT - Chief complaint Chief Complaint: Ext Problem - History obtained from History obtained from: Patient - History of Present Illness Pain level max: 5 Pain level now: 3 - Additonal information Additional information: 33-year-old female states that for the past 2 days she has had pain to the left thumb, increasing today. She noted bruising at the base of the thumb, does not recall any injury. Worse with movement, better with rest. No relief with Aleve. She is right-handed. Review of Systems : denies: Now EGA Skin: denies: Rash PD PAST MEDICAL HISTORY - Past Medical History Past Medical History: Yes Cardiovascular: Hypertension Respiratory: None Neuro: None Endocrine/Autoimmune: Other GI: Other STOCK LAYER: None : None HEENT: None Psych: Depression Musculoskeletal: None Derm: None - Past Surgical History Past Surgical History: No - Present Medications Home Medications: Ambulatory Orders Medication Instructions Recorded Confirmed Cyanocobalamin (Vitamin B-12) 1,000 mcg PO DAILY 01/10/23 12/24/23 [Vitamin B-12] Venlafaxine ER [Effexor ER] 150 mg PO DAILY 01/10/23 12/24/23 Acetaminophen [Tylenol] 1,000 mg PO Q8H PRN 12/24/23 12/24/23 Buspirone HCl 15 mg PO DAILY 12/24/23 12/24/23 HYDROcod/ACETAM 5/325 [Francisco 5/325] 1 - 2 ea PO Q6H PRN #10 tablet 12/24/23 Ibuprofen [Motrin] 600 mg PO Q6HR PRN 12/24/23 12/24/23 Levothyroxine Sodium [Synthroid] 100 mcg PO DAILY 12/24/23 12/24/23 Loratadine [Claritin] 10 mg PO DAILY 12/24/23 12/24/23 Ondansetron Odt [Zofran] 4 mg TL Q6H PRN #10 tablet 12/24/23 - Allergies Allergies/Adverse Reactions: Allergies Allergy/AdvReac Type Severity Reaction Status Date / Time cantaloupe Allergy Anaphylaxis Verified 12/24/23 13:45 honeydew Allergy Anaphylaxis Verified 12/24/23 13:45 Sulfa (Sulfonamide Allergy Hives Verified 12/24/23 13:45 Antibiotics) tomato Allergy Anaphylaxis Verified 12/24/23 13:45 watermelon Allergy Anaphylaxis Verified 12/24/23 13:45 - Social History Does the pt smoke?: No Smoking Status: Never smoker Does the pt drink ETOH?: Yes Does the pt have substance abuse?: No - Immunizations Immunizations are current?: No - POLST Patient has POLST: No PD ED PE NORMAL - Vitals Vital signs reviewed: Yes - General General: Alert and oriented X 3, No acute distress - HEENT HEENT: Moist mucous membranes - Neck Neck: Supple, no meningeal sign - Derm Derm: Warm and dry - Extremities Extremities: Other (L thumb - Tender to palpation over the metacarpal of the left thumb. There is bruising to the dorsum of the area. No snuffbox tenderness. Otherwise normal examination of the left hand.) - Neuro Neuro: Alert and oriented X 3 Results - Vitals Vitals: Vital Signs - 24 hr 12/24/23 12/24/23 13:34 14:48 Temperature 36.3 C L Heart Rate 83 77 Respiratory 16 16 Rate Blood Pressure 163/105 H 149/95 H O2 Saturation 100 96 Oxygen O2 Source Room air - Rads (name of study) L hand xray Relevant Findings:: Final report received, See rad report PD Medical Decision Making - ED course Complexity details: reviewed results, considered differential, d/w patient, d/w family ED course: No acute findings on x-ray. Will have the patient follow-up with her doctor for further care. Placed in a Velcro thumb spica for comfort. Likely left thumb sprain. There is bruising along the dorsum of the metacarpal. No evidence of scaphoid injury. Pain well-controlled. Neurovascularly intact. Patient counseled regarding signs and symptoms for which I believe and urgent re- evaluation would be necessary. Patient with good understanding of and agreement to plan and is comfortable going home at this time This document was made in part using voice recognition software. While efforts are made to proofread this document, sound alike and grammatical errors may occur. Departure - Departure Disposition: 01 Home, Self Care Clinical Impression: Left thumb sprain Qualifiers: Encounter type: sequela Sprain of finger site: unspecified site Qualified Code(s): S63.602S - Unspecified sprain of left thumb, sequela Condition: Good Instructions: ED Sprain Hand Follow-Up: MARIAM BREWSTER NP [Primary Care Provider] - Within 1 week Prescriptions: HYDROcod/ACETAM 5/325 [Francisco 5/325] 1 - 2 ea PO Q6H PRN #10 tablet PRN Reason: Pain Ondansetron Odt [Zofran] 4 mg TL Q6H PRN #10 tablet PRN Reason: Nausea / Vomiting Comments: Your prescriptions were sent to the [facility] pharmacy. Wear the splint for the next 4 to 5 days until your thumb begins to heal. Your x-rays do not show any acute abnormalities today. I am prescribing a short course of narcotic pain medication for you. These are potentially dangerous and addictive medications that should be used carefully. These medications may constipate you. Take an [id number] stool softener (docusate) twice daily with plenty of water while taking these medications. If you go 24 hours without a bowel movement, take [id number] miralax, per package instructions. Do not drink or drive while taking these medications. If you received narcotic or sedating medications while in the emergency department, do not drive for 24 hours. Store this medication in a safe, secure place and out of reach of children. It is a violation of federal law to give or sell this medication to another person or to use in a manner other than prescribed. The ED will not refill narcotic prescriptions, including prescriptions lost or stolen. To dispose of unwanted medications: 1. [facility] at [address] in [place] has a medication drop box. They accept prescription medications (in pill form) Saturday through Saturday 9:00 a.m. to 5:00 p.m. 2. The [facility] [employer] accepts prescription medications (in pill form only) for disposal year round. Call for more information. 3. Contact the [facility] for the next [facility] sponsored prescription drug collection event. , [phone], or [phone]; Forms: PCP List Discharge Date/Time: 12/24/23 14:48
--- NOTE | 2023-12-24 14:41 | XRAY Report ---
PROCEDURE: Hand 3+V LT INDICATIONS: L thumb MC pain TECHNIQUE: 3 views of the hand(s) acquired. COMPARISON: None. FINDINGS: Bones: No fractures or dislocations. No suspicious bony lesions. Soft tissues: No suspicious soft tissue calcifications or masses. IMPRESSION: No acute bony abnormality. Reviewed by: Michoacano Mccray MD on 12/24/2023 2:40 PM PDT Approved by: Michoacano Mccray MD on 12/24/2023 2:40 PM PDT Station ID: [id number]
[2023-12-24 14:56] VITALS: BP 149/95; O2SAT 96
== END 2023-12-24 14:48 | disposition home or self-care (01) ==
LOC: ED 13:32
DX: S63.602A Unspecified sprain of left thumb, initial encounter (principal); X58.XXXA Exposure to other specified factors, initial encounter; I10 Essential (primary) hypertension
CPT/HCPCS: 73130; 99283; A9270; Q0162

== ENCOUNTER 2025-01-09 12:18 | Observation (INO) ==
[2025-01-09 12:55] LABS: BASOPHILS % (AUTO) 0.3 %; EOSINOPHILS # (AUTO) 0.2 10^3/uL (0.0-0.7); EOSINOPHILS % (AUTO) 2.4 %; HGB - HEMOGLOBIN 14.4 g/dL (12.0-16.0); LYMPHOCYTES # (AUTO) 0.6 10^3/uL (1.5-3.5); LYMPHOCYTES % (AUTO) 7.9 %; MEAN CORPUSCULAR HEMOGLOBIN 29.7 pg (27.0-31.0); MEAN CORPUSCULAR HGB CONC 33.5 g/dL (32.0-36.0); MEAN CORPUSCULAR VOLUME 88.7 fL (81.0-99.0); MEAN PLATELET VOLUME 9.5 fL (7.9-10.8); MONOCYTES # (AUTO) 0.4 10^3/uL (0.0-1.0); MONOCYTES % (AUTO) 4.4 %; NEUTROPHILS # (AUTO) 6.8 10^3/uL (1.5-6.6); NEUTROPHILS % (AUTO) 84.9 %; PLT - PLATELET COUNT 213 10^3/uL (130-450); RED BLOOD COUNT 4.85 10^6/uL (4.20-5.40); RED CELL DISTRIBUTION WIDTH 11.5 % (12.0-15.0)
--- OUTSIDE RECORDS SUMMARY | 2025-01-09 12:55 | EXTERNAL MEDICAL SUMMARY RPT | Continuity of Care Document ---
Author Organization [place] Address [address] [place] [id number] Phone Problems date description facility 2024-10-12 09:37 Allergic rhinitis due to pollen [facility] 2024-10-12 09:58 Allergic rhinitis due to pollen [facility] 2024-10-12 14:13 Allergic rhinitis due to pollen [facility] 2024-10-12 14:47 Allergic rhinitis due to pollen [facility] 2024-10-29 09:51 Allergic rhinitis due to pollen [facility] 2024-10-29 12:40 Allergic rhinitis due to pollen [facility] 2024-10-29 13:20 Allergic rhinitis due to pollen [facility] 2024-10-29 13:45 Allergic rhinitis due to pollen [facility] 2024-11-24 08:50 Allergic rhinitis due to pollen [facility] 2024-11-24 14:11 Allergic rhinitis due to pollen [facility] 2024-12-24 14:19 Allergic rhinitis due to pollen [facility] 2024-12-24 15:01 Allergic rhinitis due to pollen [facility] Social History date description facility
[2025-01-09 13:11] LABS: ALBUMIN 4.5 g/dL (3.2-5.5); ALBUMIN/GLOBULIN RATIO 1.5 (1.0-2.2); BILIRUBIN,TOTAL 1.5 mg/dL (0.2-1.0); CALCIUM 9.4 mg/dL (8.5-10.3); CREATININE 0.9 mg/dL (0.6-1.3); POTASSIUM 4.1 mmol/L (3.5-4.5); TOTAL PROTEIN 7.5 g/dL (6.4-8.9)
[2025-01-09 13:52] LABS: HCG UR QUAL NEGATIVE
[2025-01-09] MEDS: SODIUM CHLORIDE 0.9% 1,000 ML IV STA (13:57)
[2025-01-09 14:17] LABS: BILIRUBIN,URINE SMALL (NEGATIVE); GLUCOSE, URINE (UA) >=1000 mg/dL (NEGATIVE); KETONES,URINE (UA) 15 mg/dL (NEGATIVE); LEUKOCYTE ESTERASE, URINE NEGATIVE (NEGATIVE); NITRITE,URINE POSITIVE (NEGATIVE); OCCULT BLOOD,URINE SMALL (NEGATIVE); PROTEIN,URINE 30 mg/dL (NEGATIVE); UROBILINOGEN,URINE 1 (NORMAL) E.U./dL (NORMAL)
[2025-01-09 14:18] LABS: CLARITY,URINE CLOUDY (CLEAR)
[2025-01-09 14:22] LABS: AMORPHOUS SEDIMENT,UR Marked /LPF; BACTERIA,URINE Few /HPF (None Seen); RBC,URINE 0-5 /HPF (0-5); SQUAMOUS EPITHELIAL CELL,UR NONE SEEN (<= Few); WBC,URINE 0-3 /HPF (0-5)
[2025-01-09] MEDS: ONDANSETRON 4 MG/2 ML VIAL IVP STA (14:53)
[2025-01-09] MEDS: DICYCLOMINE 10 MG CAPSULE PO STA (14:53)
--- NOTE | 2025-01-09 15:32 | ED Physician Documentation ---
History of Present Illness Stated complaint Stated Complaint: NV, ABD PX Chief complaint Chief Complaint: General History obtained from History obtained from: Patient History of Present Illness Timing: Prior to arrival Additonal information Additional information: Patient is a 34-year-old female presenting to the emergency department with nausea vomiting abdominal pain. She notes her symptoms started about 3 to 4 days ago with cough congestion shortness of breath and a progressively worsened to increase nausea vomiting today and upper abdominal pain in the mid to left epigastric region. She has had multiple episodes of vomiting but nonbloody nonbilious.She has had intermittent chills no recent sick contacts. She denies being . She has no chest pain or shortness of breath at this time only epigastric pain radiating to her left and right upper quadrants. She is seen here for similar episodes of gastroenteritis a few months ago. She notes no persistent diarrhea today. Meds/Allgy Home Medications Ambulatory Orders Medication Instructions Recorded Confirmed venlafaxine 75 mg capsule,extended 75 mg PO DAILY 12/1801/10/25 release 24 hr acetaminophen 500 mg tablet 1,000 mg PO Q8H PRN Pain 1 -4 12/24/23 01/10/25 buspirone 15 mg tablet 15 mg PO BID 12/24/23 ibuprofen 600 mg tablet 600 mg PO Q6HR PRN Pain 1-4 12/24/23 01/10/25 levothyroxine 100 mcg tablet 100 mcg PO DAILY 12/24/23 01/10/25 (Synthroid) cetirizine 10 mg tablet 10 mg PO DAILY 06/24/2412/18 montelukast 10 mg tablet 10 mg PO DAILY PRN ALLERGY S HOTS 06/24/24 01/10/25 venlafaxine 37.5 mg 37.5 mg PO DAILY 06/24/24 capsule,extended release 24 hr (Effexor XR) aspirin 81 mg capsule 81 mg PO DAILY 09/07/2412/18 galcanezumab-gnlm 120 mg/mL 120 mg subcut Q28D 01/10/25 subcutaneous pen injector (Emgality Pen) naratriptan 2.5 mg tablet 2.5 mg PO ONCE PRN migraine 01/10/25 01/10/25 headache ondansetron HCl 4 mg tablet 4 mg PO Q8H PRN nausea and 01/10/25 vomiting #14 tabs rizatriptan 10 mg disintegrating 10 mg PO ONCE PRN rita bhavin headache 01/10/25 01/10/25 tablet Allergies Allergies Allergy/AdvReac Type Severity Reaction Status Date / Time cantaloupe Allergy Anaphylaxis Verified 01/09/25 12:22 honeydew Allergy Anaphylaxis Verified 01/09/25 12:22 Sulfa (Sulfonamide Allergy Hives Verified 01/09/25 12:22 Antibiotics) tomato Allergy Anaphylaxis Verified 01/09/25 12:22 watermelon Allergy Anaphylaxis Verified 01/09/25 12:22 PFSH Active Problems All Active Problems (Updated 01/10/25 @ 21:55 by Elena Alfred PA-C) H/O Antione thyroiditis (Acute) Elevated LFTs (Acute) Intractable nausea and vomiting (Acute) Anemia (Acute) Anxiety (Acute) Arrest of dilation, delivered, current hospitalization (Acute) state (Acute) Pre-eclampsia (Acute) Medical History Medical History Hx of thyroid nodule PTSD (post-traumatic stress disorder) Social History Social History Smoking Status: Current some day smoker Second hand tobacco smoke exposure: No Do you dip or chew tobacco?: No Do you vape?: No Living arrangement: At home Marital Status: Living Condition: With family Relationship: Level: Independent Do you feel safe in your home environment?: Yes Suffered physical, verbal, emotional, or financial abuse?: No History of Abuse: No ETOH Use: Wine Frequency: Occasional Substance Use: denies use POLST Patient has POLST: No Exam Exam Vital Signs: Vital Signs x48h Temp Pulse Resp BP Pulse Ox 01/09/25 17:14 117 H 17 138/93 H 98 01/09/25 16:06 102.7 C H 114 H 17 127/82 96 01/09/25 14:00 37.8 C 107 H 17 127/82 100 01/09/25 12:22 37.7 C 110 H 18 133/84 H 94 Constitutional normal general appearance HENMT normocephalic and head/scalp atraumatic Neck/C-Spine visual inspection normal Lymph no lymphadenopathy noted Chest inspection of chest normal Respiratory breath sounds equal bilaterally, normal respiratory effort and clear to auscultation bilaterally Gastrointestinal abdomen normal to inspection Abdomen tender nondistended pain in right upper quadrant mid and left upper quadrant regions. Results Vitals Vitals: Oxygen O2 Source Room air Labs Labs: Microbiology 01/09/25 13:30 Urine Culture - Final Urine,Random 10-50,000 COLONIES/ML Polymicrobial growth including potential pathogens. This is suggestive of skin or other contamination. Laboratory Tests 01/09/25 01/09/25 01/09/25 12:51 13:30 16:30 WBC 8.0 RBC 4.85 Hgb 14.4 Hct 43.0 MCV 88.7 MCH 29.7 MCHC 33.5 RDW 11.5 L Plt Count 213 MPV 9.5 Neut # (Auto) 6.8 H Lymph # (Auto) 0.6 L [place] # (Auto) 0.4 Eos # (Auto) 0.2 Baso # (Auto) 0.0 Absolute Nucleated RBC 0.00 Nucleated RBC % 0.0 Sodium 132 L Potassium 4.1 Chloride 97 L Carbon Dioxide 27 Anion Gap 8.0 BUN 5 L Creatinine 0.9 Estimated GFR (MDRD) 72 L Glucose 307 H Calcium 9.4 Total Bilirubin 1.5 H AST 58 H ALT 87 H Alkaline Phosphatase 118 Total Protein 7.5 Albumin 4.5 Globulin 3.0 Albumin/Globulin Ratio 1.5 Lipase 15 Urine Color YELLOW Urine Clarity CLOUDY Urine pH 6.0 Ur Specific [place] 1.025 Urine Protein 30 H Urine Glucose (UA) >=1000 H Urine Ketones 15 H Urine Occult Blood SMALL H Urine Nitrite POSITIVE H Urine Bilirubin SMALL H Urine Urobilinogen 1 (NORMAL) Ur Leukocyte Esterase NEGATIVE Urine RBC 0-5 Urine WBC 0-3 Ur Squamous Epith Cells NONE SEEN Amorphous Sediment Marked Urine Bacteria Few Ur Microscopic Review INDICATED Urine Culture Comments INDICATED Urine HCG, Qual NEGATIVE Nasal Adenovirus (PCR) NOT DETECTED Nasal B. parapertussis DNA (PCR) NOT DETECTED Nasal Coronavir 229E PCR NOT DETECTED Nasal Coronavir HKU1 PCR NOT DETECTED Nasal Coronavir NL63 PCR NOT DETECTED Nasal Coronavir OC43 PCR NOT DETECTED Nasal Enterovir/Rhinovir PCR DETECTED A Nasal Influenza B PCR NOT DETECTED Nasal Influenza A PCR NOT DETECTED Nasal Parainfluen 1 PCR NOT DETECTED Nasal Parainfluen 2 PCR NOT DETECTED Nasal Parainfluen 3 PCR NOT DETECTED Nasal Parainfluen 4 PCR NOT DETECTED Nasal RSV (PCR) NOT DETECTED Nasal B.pertussis DNA PCR NOT DETECTED Nasal C.pneumoniae (PCR) NOT DETECTED Jamie Human Metapneumo PCR NOT DETECTED Nasal M.pneumoniae (PCR) NOT DETECTED Nasal SARS-CoV-2 (PCR) NOT DETECTED PD Medical Decision Making ED course Complexity details: reviewed old records and reviewed results ED course: Patient is a 34-year-old female presenting with viral URI symptoms cough congestion shortness of breath nausea vomiting and upper abdominal pain symptoms started with viral URI symptoms but progressively worsened with severe upper abdominal pain mid epigastric region radiating to her left side. She denies any recent fevers she denies any recent sick contacts. She notes progressively worsening symptoms. Vitals here in the ED show afebrile nontachycardic saturating well on room air. Abdomen is tender to epigastric region with positive Smith sign on examination. Labs here in the emergency department show no leukocytosis. Slight elevation in AST and ALT as well as bilirubin of 1.5 here in the ED she has had previous findings similar with an episode of gastroenteritis but given concerning findings with upper abdominal pain ultrasound of gallbladder obtained here in the ED. Abdominal US 1.Hepatomegaly and diffusely increased hepatic echogenicity are nonspecific, but most commonly encountered in the setting of severe hepatic steatosis. However, other causes of hepatocellular disease are not excluded. Recommend clinical correlation. 2.Possible small fluid collection versus artifact or bowel adjacent to the pancreatic head. 3.No signs of acute cholecystitis. Reviewed with general surgeon Dr. Estrada who notes patient symptoms could be secondary to cholecystitis or she may have passed a stone, but he would not be performeing surgery on her at this time for these findings. He recommends MRCP and if she were to develop stones or worsening pain, he will evaluate patient however he recommends medical admission at this time. Discussed case with hospitalist Dr. Berg who recommends obtaining MRCP while patient still here in the ED admitting patient as she did spike a fever here in the emergency department which will be treated with Toradol and then tylenol after MRCP is performedPatient agreeable to admission at this time. Discharge Plan Discharge Patient Disposition: 67 [facility] DC/Xfer Condition: Good Clinical Impression: Intractable nausea and vomiting, Elevated LFTs Interventions: ED Admission Assessment Last Done: 01/09/25 17:45
[2025-01-09] MEDS: MORPHINE 2 MG/ML CARPUJECT IVP STA (15:47)
--- NOTE | 2025-01-09 16:44 | Ultrasound Report ---
PROCEDURE: US Abdomen Limited INDICATIONS: right upper quadrant pain TECHNIQUE: Real-time focused scanning was performed of the abdomen, with image documentation. COMPARISONS: Abdomen ultrasound 09/13/2024. FINDINGS: Liver: Liver is enlarged measuring up to 20.1 cm maximum dimension and is diffusely increased in density with posterior acoustic attenuation. Gallbladder: No gallstones, sludge, wall thickening or pericholecystic edema. Biliary ducts: Intrahepatic bile ducts are non-dilated. Extrahepatic bile duct caliber measures 3 mm. Normal is 6-7 mm or less in diameter, or 10 mm or less post-cholecystectomy. Pancreas: Not well visualized due to overlying bowel gas. Possible small fluid collection versus artifact or bowel adjacent to the pancreatic head. Right kidney: Normal in size and echotexture. Right kidney measures 10.6 cm long. No hydronephrosis or nephrolithiasis. No solid masses. No complex renal cystic lesions which require follow-up. IVC: Intrahepatic inferior vena cava is patent. Miscellaneous: No free abdominal fluid. IMPRESSION: 1.Hepatomegaly and diffusely increased hepatic echogenicity are nonspecific, but most commonly encountered in the setting of severe hepatic steatosis. However, other causes of hepatocellular disease are not excluded. Recommend clinical correlation. 2.Possible small fluid collection versus artifact or bowel adjacent to the pancreatic head. 3.No signs of acute cholecystitis. Reviewed by: Jarrett Boyle MD on 01/09/2025 3:42 PM [facility]CK Approved by: Jarrett Boyle MD on 01/09/2025 3:42 PM [facility]CK Station ID: [id number]
[2025-01-09] MEDS: KETOROLAC 15 MG/ML VIAL IVP STA (16:48)
--- NOTE | 2025-01-09 16:54 | HISTORY & PHYSICAL EXAMINATION ---
Chief Complaint Chief Complaint Chief Complaint: Nausea, vomiting, abdominal pain History of Present Illness Admitted From Admitted From:: Home History Obtained From Records Reviewed: EMR History obtained from: Patient Exam Limitations: None History of Present Illness HPI Comment/Other: Patient is a 34-year-old female with a history of preeclampsia with her last in 08/2023, hypothyroidism who presents with intractable nausea and vomiting, as well as abdominal pain. Patient states that her , as well as her child first had nausea, vomiting, diarrhea a few days ago. 2 days ago, she started feeling the symptoms as well. She states that she has been throwing up 5-6 times a day for the past 2 days. She has been unable to keep anything down. Her vomit is a dark green color. She denies any blood in her vomit. She has noticed some chunks in it though. She also has diarrhea, she is gone about 2-3 times per day, and describes it as watery. There is no blood in her stool. She also has some abdominal pain. She describes it as epigastric, as well as right upper quadrant pain, with radiation outward. She describes it as sharp. She also feels like she has a lot of gas buildup, and feels like the edges of the stomach are squeezing, "like a balloon." She also endorses fevers, chills, feelings like her heart is racing. Of note, she states that she has had abdominal pain like this intermittently over the last few years. She also has associated nausea and vomiting when she gets this abdominal pain. On top of all this, she also endorses a cough, not productive of any sputum. She has no shortness of breath. She states is pretty common for her to get an upper respiratory infection during the spring. In the ED, she was found to be febrile, tachycardic with heart rate as high as 114, respiratory rate of 17, she was saturating 96% on room air. She was normotensive with blood pressure of 127/82. Her lab work was reviewedher white count was within normal limits. Her sodium was mildly decreased at 132. Her potassium was within normal limits. Her creatinine was also within normal limits at 0.9. Her glucose was elevated at 307. Her bilirubin was elevated at 1.5, and her AST was high at 58, and ALT was high at 87. This transaminitis is pretty similar to what her numbers were in 05/2024. Abdominal ultrasound was done, and it showed hepatomegaly, increased hepatic echogenicity, severe hepatic steatosis. Possible small fluid collection versus artifact or bowel adjacent to the pancreatic head. There were no signs of acute cholecystitis. Her lipase was within normal limits. The emergency room PA did speak with general surgery, and they recommended an MRCP. She was admitted for intractable nausea, vomiting, abdominal pain. Meds/Allgy Home Medications Ambulatory Orders Medication Instructions Recorded Confirmed venlafaxine 75 mg capsule,extended 150 mg PO DAILY 09/13/24 release 24 hr acetaminophen 500 mg tablet 1,000 mg PO Q8H PRN Pain 1 -4 12/24/23 09/13/24 buspirone 15 mg tablet 15 mg PO BID 12/24/23 ibuprofen 600 mg tablet 600 mg PO Q6HR PRN Pain 1-4 12/24/23 09/13/24 levothyroxine 100 mcg tablet 100 mcg PO DAILY 12/24/23 09/13/24 (Synthroid) cetirizine 10 mg tablet 10 mg PO DAILY 06/24/2408/20 levocetirizine 5 mg tablet (24HR 5 mg PO DAILY 4 09/13/24 Allergy Relief) montelukast 10 mg tablet 10 mg PO DAILY 06/24/2408/20 venlafaxine 37.5 mg 37.5 mg PO DAILY 06/24/24 capsule,extended release 24 hr (Effexor XR) aspirin 81 mg capsule 81 mg PO DAILY 09/07/2408/20 Allergies Allergies Allergy/AdvReac Type Severity Reaction Status Date / Time cantaloupe Allergy Anaphylaxis Verified 01/09/25 12:22 honeydew Allergy Anaphylaxis Verified 01/09/25 12:22 Sulfa (Sulfonamide Allergy Hives Verified 01/09/25 12:22 Antibiotics) tomato Allergy Anaphylaxis Verified 01/09/25 12:22 watermelon Allergy Anaphylaxis Verified 01/09/25 12:22 PFS Active Problems All Active Problems (Updated 01/09/25 @ 17:02 by Karl Sandhu MD) H/O Antione thyroiditis (Acute) Elevated LFTs (Acute) Intractable nausea and vomiting (Acute) Anemia (Acute) Anxiety (Acute) Arrest of dilation, delivered, current hospitalization (Acute) state (Acute) Pre-eclampsia (Acute) Medical History Medical History Hx of thyroid nodule PTSD (post-traumatic stress disorder) Social History Social History Smoking Status: Never smoker Do you dip or chew tobacco?: No Do you vape?: No Living arrangement: At home Marital Status: Living Condition: With family Relationship: Level: Independent Do you feel safe in your home environment?: Yes Suffered physical, verbal, emotional, or financial abuse?: No History of Abuse: No ETOH Use: Wine Frequency: Occasional Substance Use: denies use POLST Patient has POLST: No POLST Status: Full Code Review of Systems Constitutional Reports: Fever, Chills, Malaise, Weakness, Poor appetite and Weight loss; Denies: Fatigue Eyes Denies: Pain, Irritation, Blurry vision, Vision loss, Diplopia or Eye discomfort Ears, nose, mouth, and throat Denies: Ear pain, Hearing loss, Tinnitus, Nose bleeds, Nasal discharge, Mouth lesions, Bleeding gums or Neck pain Cardiovascular Denies: Irregular heart rate, chest pain, palpitations, edema, Syncope or shortness of breath with exertion Respiratory Reports: Cough; Denies: Shortness of breath, Sputum production or Wheezing Gastrointestinal Reports: Abdominal pain, Nausea, Vomiting, Poor appetite, Diarrhea and Bloating; Denies: Abdominal distention, Heartburn or Constipation Genitourinary Denies: Painful urination, Urinary frequency or Urinary urgency Musculoskeletal Denies: Back pain, Neck pain, Extremity pain, Extremity swelling or Joint pain Integumentary/Breast Denies: Rash, Itching, Dryness, Redness or Skin pain Neurological Denies: Headache, General weakness, Weakness in extremities, Numbness in extremities, Abnormal gait or Dizziness Psychiatric Denies: Depression, Anxiety, Mood swings or Panic attacks Endocrine Denies: Excessive urination, Excessive thirst or Fatigue Hematologic/Lymphatic Denies: Anemia, Easy bruising or Easy bleeding Allergic/Immunologic Denies: Hives, Tongue swelling, Facial swelling or Wheezing Exam Exam Vital Signs: Vital Signs x48h Temp Pulse Resp BP Pulse Ox 01/09/25 16:06 216.9 F H 114 H 17 127/82 96 01/09/25 14:00 100.0 F 107 H 17 127/82 100 01/09/25 12:22 99.9 F 110 H 18 133/84 H 94 Constitutional normal general appearance, no apparent distress, abnormal body habitus (overweight), no limitations and alert HENMT normocephalic and head/scalp atraumatic Eyes PERRL, EOMs intact bilaterally, conjunctivae normal and no scleral icterus Neck/C-Spine visual inspection normal and trachea midline Chest inspection of chest normal and palpation of chest normal Respiratory breath sounds equal bilaterally, normal respiratory effort, clear to auscultation bilaterally, no wheezes and no rales Cardiovascular heart rate abnormal (tachycardic), regular rhythm noted, no gallop, no murmur and peripheral pulses 2+ throughout Gastrointestinal abdomen normal to inspection, abdomen soft to palpation, tender to palpation (moderate), (epigastric) and (RUQ), normoactive bowel sounds and no hepatosplenomegaly Genitourinary no CVA tenderness Extremities normal to inspection, normal to palpation, no tenderness and full ROM Psychiatry mental status grossly normal, oriented x3, thought process normal, cooperative and affect normal Skin skin color normal, no rash, no lesions and no ecchymosis noted Conclusion/Plan Problem List (1) Intractable nausea and vomiting: Plan: Patient presents with 2 days of intractable nausea and vomiting. She has been unable to sustain any p.o. intake. Family members at home with similar symptoms which are improving at this time. Continue IV fluid resuscitation, IV Zofran, IV pain medications, Toradol versus morphine as needed. Likely viral gastroenteritis. Will start with full liquids, and advance as tolerated. (2) Elevated LFTs: Plan: Ultrasound of the abdomen today, and previously both suggest hepatic steatosis. She should follow-up with a GI specialist in the outpatient setting. Continue to trend. (3) Abdominal pain: Plan: Patient does have epigastric pain as well as right upper quadrant pain. There was some concern for thickening of the gallbladder wall per ED PA. MRCP is ordered. Surgery is aware of the patient. Will continue to follow. Patient does state that she has this intermittent abdominal pain in her right upper quadrant, which may represent choledocholithiasis. Qualifiers: Abdominal location: right upper quadrant Qualified Code(s): R10.11 - Right upper quadrant pain (4) PTSD (post-traumatic stress disorder): Plan: Continue Effexor, buspirone. (5) H/O Antione thyroiditis: Plan: Continue levothyroxine. Lab Results Lab results reviewed: Yes 01/09/25 12:51 01/09/25 12:51 Diagnostic Imaging Results Diagnostic Imaging Results: positive Final report reviewed Core Measures Anticipated LOS I expect patient to be DC'd or transferred within 96 hours.: Yes Issues Hospital Issues and Management Plan: None anticipated. DVT/VTE - Prophylaxis VTE/DVT Device ordered at admit?: No VTE/DVT Prophylaxis med ordered at admit?: Yes
[2025-01-09 17:35] LABS: B. PARAPERTUSSIS- RESP PCR PAN NOT DETECTED; B. PERTUSSIS- RESP PCR PANEL NOT DETECTED; C. PNEUMONIAE- RESP PCR PANEL NOT DETECTED; CORONAVIRUS 229E-RESP PCR NOT DETECTED; CORONAVIRUS HKU1-RESP PCR NOT DETECTED; CORONAVIRUS NL63-RESP PCR NOT DETECTED; CORONAVIRUS OC43-RESP PCR NOT DETECTED; HUMAN METAPNEUMOVIRUS NOT DETECTED; INFLUENZA A- RESP PCR PANEL NOT DETECTED; INFLUENZA B - RESP PCR PANEL NOT DETECTED; M. PNEUMONIAE- RESP PCR PANEL NOT DETECTED; PARAINFLUENZA VIRUS 1 NOT DETECTED; PARAINFLUENZA VIRUS 2 NOT DETECTED; PARAINFLUENZA VIRUS 4 NOT DETECTED; RHINOVIRUS/ENTEROVIRUS DETECTED; RSV- RESP PCR PANEL NOT DETECTED; SARS-CoV-2 -RESP PCR PANEL NOT DETECTED
[2025-01-09] MEDS ORDERED: SODIUM CHLORIDE FLUSH 0.9% 10 ML SYRINGE IVP PRN (17:53)
[2025-01-09] MEDS: ACETAMINOPHEN 500 MG TABLET PO STA (18:01)
--- NOTE | 2025-01-09 18:58 | MRI Report ---
PROCEDURE: MRI MRCP WO INDICATIONS: upper abdominal CONTRAST: None TECHNIQUE: Coronal ultra fast SE through the abdomen, axial 2-D spoiled GE in- and [id number], and breath-hold T2 FSE with fat saturation through the biliary system and pancreas. Oblique coronal and axial thin-slice ultra fast SE, radial thick-slab ultra fast SE centered on the extrahepatic bile ducts. COMPARISON: 01/10/2000 FINDINGS: Image quality: Excellent. Gallbladder: No stones or wall thickening. Biliary tree: No intrahepatic or extrahepatic dilation. No filling defects within the common bile duct. Pancreas: No pancreatic ductal dilation. Lung bases and heart: Unremarkable. Liver: Severe hepatic steatosis, with signal dropout on the out of phase sequence. Spleen: No splenomegaly. Adrenals: No adrenal nodule. Kidneys and ureters: No hydronephrosis. No renal cystic lesion which requires follow up. No solid mass. Bowel and peritoneum: No bowel distension. No pathologic free fluid. Normal appendix. Lymph nodes: No central or retroperitoneal adenopathy. Vessels: No infrarenal aortic aneurysm. Bones: No aggressive osseous abnormality. Other: No significant ventral hernia. IMPRESSION: No acute abnormality. No gallstones or choledocholithiasis. Normal MRI appearance of the pancreas. Severe hepatic steatosis. Reviewed by: Yevgeniy Morales MD on 01/09/2025 6:57 PM PDT Approved by: Yevgeniy Morales MD on 01/09/2025 6:57 PM PDT Station ID: [id number]
[2025-01-09] MEDS: SODIUM CHLORIDE FLUSH 0.9% 10 ML SYRINGE IVP SCH (19:07)
[2025-01-09] MEDS: LACTATED RINGERS 1,000 ML IV SCH (19:07)
[2025-01-09] MEDS: MORPHINE 2 MG/ML CARPUJECT IVP PRN (19:21)
[2025-01-09] MEDS: KETOROLAC 15 MG/ML VIAL IVP PRN (22:20)
[2025-01-09] MEDS: ACETAMINOPHEN 325 MG TABLET PO PRN (22:21)
[2025-01-09] MEDS: ONDANSETRON 4 MG/2 ML VIAL IVP PRN (23:44)
[2025-01-10 04:46] LABS: HGB - HEMOGLOBIN 12.8 g/dL (12.0-16.0); MEAN CORPUSCULAR HEMOGLOBIN 29.7 pg (27.0-31.0); MEAN CORPUSCULAR HGB CONC 33.7 g/dL (32.0-36.0); MEAN CORPUSCULAR VOLUME 88.2 fL (81.0-99.0); MEAN PLATELET VOLUME 9.8 fL (7.9-10.8); RED BLOOD COUNT 4.31 10^6/uL (4.20-5.40); RED CELL DISTRIBUTION WIDTH 11.7 % (12.0-15.0); WHITE BLOOD COUNT 4.7 x10^3/uL (4.8-10.8)
[2025-01-10 05:06] LABS: ALBUMIN 3.7 g/dL (3.2-5.5); ALBUMIN/GLOBULIN RATIO 1.5 (1.0-2.2); BILIRUBIN,DIRECT 0.21 mg/dL (0.03-0.18); BILIRUBIN,INDIRECT 0.8 mg/dL; CALCIUM 8.7 mg/dL (8.5-10.3); CREATININE 0.8 mg/dL (0.6-1.3); MAGNESIUM 1.7 mg/dL (1.7-2.3); POTASSIUM 3.9 mmol/L (3.5-4.5); TOTAL PROTEIN 6.2 g/dL (6.4-8.9)
[2025-01-10] MEDS: ENOXAPARIN 40 MG/0.4 ML SYRINGE SUBQ SCH (08:14)
--- NOTE | 2025-01-10 09:51 | Discharge Summary ---
Discharge Summary Admit Date: 01/09/25 Discharge Date: 01/10/25 Discharging Provider: Dr. Karl Sandhu Primary Care Provider: None at this time Code Status: Attempt Resuscitation Discharge Facility Name: Home DIAGNOSES Admission Diagnoses: Intractable nausea and vomiting Elevated LFTs Abdominal pain PTSD Antione thyroiditis Discharge Diagnoses with Status of Each Condition: Intractable nausea and vomitingresolved. Patient likely has viral gastroenteritis. Will send home with short course of Zofran as needed. Elevated LFTsresolved. However, ultrasound of the abdomen does show hepatic steatosis. Patient should follow-up closely with the GI doctor. Abdominal painresolving. PTSDcontinue home Effexor and buspirone. Antione thyroiditiscontinue levothyroxine. HPI History of Present Illness: Patient is a 34-year-old female with a history of preeclampsia with her last in 08/2023, hypothyroidism who presents with intractable nausea and vomiting, as well as abdominal pain. Patient states that her , as well as her child first had nausea, vomiting, diarrhea a few days ago. 2 days ago, she started feeling the symptoms as well. She states that she has been throwing up 5-6 times a day for the past 2 days. She has been unable to keep anything down. Her vomit is a dark green color. She denies any blood in her vomit. She has noticed some chunks in it though. She also has diarrhea, she is gone about 2-3 times per day, and describes it as watery. There is no blood in her stool. She also has some abdominal pain. She describes it as epigastric, as well as right upper quadrant pain, with radiation outward. She describes it as sharp. She also feels like she has a lot of gas buildup, and feels like the edges of the stomach are squeezing, "like a balloon." She also endorses fevers, chills, feelings like her heart is racing. Of note, she states that she has had abdominal pain like this intermittently over the last few years. She also has associated nausea and vomiting when she gets this abdominal pain. On top of all this, she also endorses a cough, not productive of any sputum. She has no shortness of breath. She states is pretty common for her to get an upper respiratory infection during the spring. In the ED, she was found to be febrile, tachycardic with heart rate as high as 114, respiratory rate of 17, she was saturating 96% on room air. She was normotensive with blood pressure of 127/82. Her lab work was reviewedher white count was within normal limits. Her sodium was mildly decreased at 132. Her potassium was within normal limits. Her creatinine was also within normal limits at 0.9. Her glucose was elevated at 307. Her bilirubin was elevated at 1.5, and her AST was high at 58, and ALT was high at 87. This transaminitis is pretty similar to what her numbers were in 05/2024. Abdominal ultrasound was done, and it showed hepatomegaly, increased hepatic echogenicity, severe hepatic steatosis. Possible small fluid collection versus artifact or bowel adjacent to the pancreatic head. There were no signs of acute cholecystitis. Her lipase was within normal limits. The emergency room PA did speak with general surgery, and they recommended an MRCP. She was admitted for intractable nausea, vomiting, abdominal pain. CONSULTS | PROCEDURES Consultations: - Procedures: MRCP, US abdomen HOSPITAL COURSE Hospital Course: Patient is a 34-year-old female with history of preeclampsia, hypothyroidism who presented for intractable nausea, vomiting, abdominal pain. Her family members had similar symptoms that were just starting to resolve. She was also positive for rhinovirus. Ultrasound of the abdomen is done, which was negative. MRCP was also completed, which was negative. It did show hepatic steatosis, for which she needs to follow-up outpatient with gastroenterology. Her LFTs, elevated bilirubin resolved with IV hydration. Her symptoms are starting to improve. She was advised to follow closely with a primary care provider, adhere to a soft diet until her symptoms are completely resolved, and discharged home. ALLERGIES Allergies Allergy/AdvReac Type Severity Reaction Status Date / Time cantaloupe Allergy Anaphylaxis Verified 01/09/25 12:22 honeydew Allergy Anaphylaxis Verified 01/09/25 12:22 Sulfa (Sulfonamide Allergy Hives Verified 01/09/25 12:22 Antibiotics) tomato Allergy Anaphylaxis Verified 01/09/25 12:22 watermelon Allergy Anaphylaxis Verified 01/09/25 12:22 MEDICATIONS Ambulatory Orders Medication Instructions Recorded Confirmed venlafaxine 75 mg capsule,extended 75 mg PO DAILY 12/1801/10/25 release 24 hr acetaminophen 500 mg tablet 1,000 mg PO Q8H PRN Pain 1 -4 12/24/23 01/10/25 buspirone 15 mg tablet 15 mg PO BID 12/24/23 ibuprofen 600 mg tablet 600 mg PO Q6HR PRN Pain 1-4 12/24/23 01/10/25 levothyroxine 100 mcg tablet 100 mcg PO DAILY 12/24/23 01/10/25 (Synthroid) cetirizine 10 mg tablet 10 mg PO DAILY 06/24/2412/18 montelukast 10 mg tablet 10 mg PO DAILY PRN ALLERGY S HOTS 06/24/24 01/10/25 venlafaxine 37.5 mg 37.5 mg PO DAILY 06/24/24 capsule,extended release 24 hr (Effexor XR) aspirin 81 mg capsule 81 mg PO DAILY 09/07/2412/18 galcanezumab-gnlm 120 mg/mL 120 mg subcut Q28D 01/10/25 subcutaneous pen injector (Emgality Pen) naratriptan 2.5 mg tablet 2.5 mg PO ONCE PRN migraine 01/10/25 01/10/25 headache ondansetron HCl 4 mg tablet 4 mg PO Q8H PRN nausea and 01/10/25 vomiting #14 tabs rizatriptan 10 mg disintegrating 10 mg PO ONCE PRN rita bhavin headache 01/10/25 01/10/25 tablet PHYSICAL EXAM AT DISCHARGE Vital Signs: Vital Signs x48h Temp Pulse Resp BP Pulse Ox O2 Flow Rate 01/10/25 11:47 97.7 F 66 20 131/69 H 94 01/10/25 11:41 98.1 F 75 20 140/87 H 97 01/10/25 08:02 97.5 F L 86 17 113/86 97 0 General Appearance: positive No acute distress and Alert; negative Anxious Eyes Bilateral: positive Normal inspection, PERRL and EOMI ENT: positive ENT inspection nml, Pharynx nml and No signs of dehydration Neck: positive Nml inspection, Thyroid nml, No JVD and Trachea midline Respiratory: positive Chest non-tender and No respiratory distress; negative Wheezes, Rales or Rhonchi Cardiovascular: positive Regular rate & rhythm, No murmur and No gallop; negative Tachycardia Peripheral Pulses: positive 2+ Abdomen: positive Non-tender, No organomegaly, Nml bowel sounds and No distention Back: positive Nml inspection; negative CVA tenderness (R) or CVA tenderness (L) Skin: positive Color nml, No rash, Warm and Dry Extremities: positive Non-tender, Full ROM, Nml appearance and No pedal edema Neurologic/Psychiatric: positive Oriented x3, Motor nml and Mood/affect nml LABS 01/10/25 04:13 01/10/25 04:13 DIAGNOSTIC IMAGING Diagnostic Imaging Results: Final report reviewed FOLLOW UP Follow Up: Follow up with PCP. TIME SPENT Time Spent in Discharge (Minutes): 35 Discharge Plan Discharge Patient Disposition: Home, Self Care Condition: Good Prescriptions: New ondansetron HCl 4 mg tablet 4 mg PO Q8H PRN (Reason: nausea and vomiting) Qty: 14 0RF Continued venlafaxine 75 MG capsule,extended release 24hr 75 mg PO DAILY buspirone 15 MG tablet 15 mg PO BID acetaminophen 500 MG tablet 1,000 mg PO Q8H PRN (Reason: Pain 1-4) ibuprofen 600 MG tablet 600 mg PO Q6HR PRN (Reason: Pain 1-4) levothyroxine [Synthroid] 100 MCG tablet 100 mcg PO DAILY venlafaxine [Effexor XR] 37.5 mg capsule,extended release 24hr 37.5 mg PO DAILY cetirizine 10 mg tablet 10 mg PO DAILY montelukast 10 mg tablet 10 mg PO DAILY PRN (Reason: ALLERGY SHOTS) Rx Instructions: ONLY TAKE ON DAYS RECEIVING ALLERGY SHOTS aspirin 81 mg capsule 81 mg PO DAILY Emgality Pen 120 mg/mL pen injector 120 mg SUBCUT Q28D naratriptan 2.5 mg tablet 2.5 mg PO ONCE PRN (Reason: migraine headache) rizatriptan 10 mg tablet,disintegrating 10 mg PO ONCE PRN (Reason: migraine headache) Diet: Soft Interventions: Belongings Inventory Last Done: 01/09/25 18:06 Discharge Last Done: 01/10/25 13:05 Discharge Checklist - Nursing Last Done: 01/10/25 13:05 Health Concerns: You came in for a few symptoms. First of all, you were having nausea, vomiting, abdominal pain. This is likely due to a viral gastroenteritis, especially because family members have had similar symptoms at home. Nevertheless, we did an ultrasound of your abdomen, as well as an abdominal MRI which showed no gallstones, no abnormalities with your gallbladder, or other concerning findings. It did show that you had some fatty changes to your liver, a condition called hepatic steatosis. You should follow-up closely with a rubber splicer regarding this. You are also found to have rhinovirus, one of the viruses that causes the common cold. Please take it easy at home. Please continue with full liquids for now. I encourage a lot of water intake so you do not get dehydrated. Advance your diet slowly to a bland, soft diet. Please follow-up with your primary care doctor in the next few weeks. We are glad you are feeling better, these feelings take care of you. Print Language: Portuguese Patient Instructions: ED Diet [place], ED Gastroenteritis Viral Stand Alone Forms: PCP List Follow-up Care: MARIAM BREWSTER NP [Primary Care Provider] -
--- NOTE | 2025-01-10 10:03 | PHARMACY PROGRESS NOTE ---
Best Possible Medication History Admit Date and Time: 01/09/25 [id number] Home Medications Medication Instructions Recorded Confirmed Type venlafaxine 75 mg capsule,extended 75 mg PO DAILY 12/1801/10/25 History release 24 hr acetaminophen 500 mg tablet 1,000 mg PO Q8H PRN Pain 1 -4 12/24/23 01/10/25 His tory buspirone 15 mg tablet 15 mg PO BID 12/24/23 History ibuprofen 600 mg tablet 600 mg PO Q6HR PRN Pain 1-4 12/24/23 01/10/25 History levothyroxine 100 mcg tablet 100 mcg PO DAILY 12/24/23 01/10/25 History (Synthroid) cetirizine 10 mg tablet 10 mg PO DAILY 06/24/2412/18 History montelukast 10 mg tablet 10 mg PO DAILY PRN ALLERGY S HOTS 06/24/24 01/10/25 Hist ory venlafaxine 37.5 mg 37.5 mg PO DAILY 06/24/24 History capsule,extended release 24 hr (Effexor XR) aspirin 81 mg capsule 81 mg PO DAILY 09/07/2412/18 History galcanezumab-gnlm 120 mg/mL 120 mg subcut Q28D 01/10/25 History subcutaneous pen injector (Emgality Pen) naratriptan 2.5 mg tablet 2.5 mg PO ONCE PRN migraine 01/10/25 01/10/25 History headache rizatriptan 10 mg disintegrating 10 mg PO ONCE PRN rita bhavin headache 01/10/25 01/10/25 History tablet Processed by: Pharmacy Medications reviewed in ED?: No Medication History completed: Yes Patient Interview: Completed Secondary Source(s): Pharmacy records and Insurance records [facility] Statement: As the person ultimately responsible for medication therapy, providers are able to order a medication from an existing home medication list in [facility] via the "Reconcile Routine" prior to Confirmation of that medication by instructional support specialist. Such practice is discouraged except when the physician, in their clinical judgment, deems that a medical need exists for a medication without regard to previous use.
[2025-01-10] MEDS: ONDANSETRON ODT 4 MG TABLET TL PRN (12:09)
[2025-01-10 15:04] VITALS: BP 140/87; TEMP 98.1; O2SAT 97
== END 2025-01-10 13:00 | disposition home or self-care (01) ==
LOC: MS2 12:18 → ED 12:18 → MS2 18:22
PROVIDERS: ADMIT Internal Medicine; ATTEND Internal Medicine
DX: R10.13 Epigastric pain; R00.0 Tachycardia, unspecified; R11.2 Nausea with vomiting, unspecified; K76.0 Fatty (change of) liver, not elsewhere classified; R10.10 Upper abdominal pain, unspecified; B34.8 Other viral infections of unspecified site; E06.3 Autoimmune thyroiditis; F43.10 Post-traumatic stress disorder, unspecified